=== PATIENT | female | born 1940 | race Caucasian/White ===

== ENCOUNTER 2017-07-15 12:39 | Emergency (ER) | END 2017-07-15 17:00 | disposition home or self-care (01) ==

== ENCOUNTER 2017-08-17 18:55 | Inpatient (IN) | END 2017-08-23 22:15 | disposition home or self-care (01) | DRG 392 ==

== ENCOUNTER 2018-04-21 11:11 | Inpatient (IN) | payer MEDICARE, OTHER ==
[~2018-04-21] VITALS: Ht 157.5 cm; Wt 47.0 kg
[~2018-04-21 11:11] MED LIST: ACET325T40 PO; AMIT100T2 PO; BENA40TA56 PO; CIPR500T4 PO; DIAZ5TAB4 PO; DILT180C94 PO; FLUT16SP17 NASAL; HYDR-4012 PO; LEVO125T7 PO; MELO7.5T38 PO; METR500T PO; OMEP40CA6 PO; PARO-37 PO; POLY17PO6 PO; PROP10TA6 PO
[2018-04-21] MEDS ORDERED: SOD CHLORIDE 0.9% 1,000 ML IV STA (11:15)
[2018-04-21] MEDS ORDERED: ONDANSETRON 4 MG INJ IV STA (11:15)
[2018-04-21] MEDS ORDERED: morphine 4 MG/ML VIAL IV STA (11:15)
[2018-04-21] MEDS ORDERED: RALO60TA13 ORAL (12:13)
[2018-04-21] MEDS ORDERED: OMEP20CA16 (12:13)
[2018-04-21] MEDS ORDERED: LINA145C ORAL (12:13)
[2018-04-21] MEDS ORDERED: ACETAMINOPHEN 325 MG TAB PO PRN (13:00)
[2018-04-21] MEDS ORDERED: ONDANSETRON 4 MG INJ IV PRN (13:00)
[2018-04-21] MEDS ORDERED: SODIUM POLYSTYRENE 15 GM KIT (POWDER + SORBITOL) PO ONE (13:30)
--- NOTE | 2018-04-21 13:46 | ERD ---
ER Documentation Chief Complaint Chief Complaint Abdominal pain with n/v HPI Patient is a 77-year-old female with hypertension, depression, and previous bowel obstruction who presents with abdominal pain. She was brought in by sylvain mike. She says "I feel sick". She has had diffuse abdominal pain and no bowel movement for the past 1 week. She has vomiting. She came from home. Her abdomen is distended. She has had no treatment for pain as of yet. Upon review of old medical records this is the patient's fourth visit to the ER since 2005. Her primary doctor is Dr. Bautista. ROS All systems reviewed and are negative except as per history of present illness. Medications Home Meds Active Scripts Metronidazole* (Flagyl*) 500 Mg Tablet, 500 MG PO Q8 for 10 Days, #30 TAB Prov:HERNANDEZ MO [employer]ENDER 08/23/17 Ciprofloxacin Hcl* (Ciprofloxacin Hcl*) 500 Mg Tablet, 500 MG PO BID for 10 Days, #20 TAB Prov:HERNANDEZ MO NP 08/23/17 Acetaminophen (MAPAP) 325 Mg Tablet, 650 MG PO Q6H PRN for PAIN LEVEL 1-3 OR FEVER for 1 Day, #1 TAB otc Prov:RUBA MENJIVAR MD 08/21/17 Reported Medications Omeprazole* (Omeprazole*) 20 Mg Capsule.dr, 1 CAP DAILY 04/21/18 Raloxifene HCl (Raloxifene HCl) 60 Mg Tablet, 1 TAB ORAL DAILY 04/21/18 Linaclotide (LINZESS) 145 Mcg Capsule, 1 CAP ORAL DAILY 04/21/18 Fluticasone Propionate* (Fluticasone Propionate* Nasal) 50 Mcg/[place] - 16 Gm [place].susp, 1 SPRAY NASAL BID, #1 BOTTLE TO EACH NOSTRIL 08/17/17 Levothyroxine Sodium* (Levothyroxine Sodium*) 125 Mcg Tablet, 125 MCG PO BEFORE BREAKFAST, #30 TAB 08/17/17 Amitriptyline Hcl* (Amitriptyline Hcl*) 100 Mg Tablet, 100 MG PO QHS, #30 TAB 08/17/17 Paroxetine Hcl* (Paroxetine*) 20 Mg Tablet, 20 MG PO HS, TAB 08/17/17 Propranolol Hcl* (Propranolol Hcl*) 10 Mg Tablet, 10 MG PO DAILY, TAB 08/17/17 Diazepam* (Diazepam*) 5 Mg Tablet, 5 MG PO TID, TAB 08/17/17 Benazepril Hcl* (Benazepril Hcl*) 40 Mg Tablet, 40 MG PO DAILY, #30 TAB 08/17/17 Polyethylene Glycol* (Miralax*) 17 Gm Powd.pack, 17 GM PO DAILY, #30 PACKET 08/17/17 Meloxicam* (Meloxicam*) 7.5 Mg Tablet, 15 MG PO DAILY, #30 TAB 08/17/17 Diltiazem Hcl* (Diltiazem XT) 180 Mg Capsule.er, 180 MG PO DAILY, #30 CAP 08/17/17 Discontinued Reported Medications Hydrocodone/Acetaminophen ([place] 7.5-325 Tablet) 1 Each Tablet, 1 EACH PO NEEDED, TAB 08/17/17 Discontinued Scripts Omeprazole* (Omeprazole*) 40 Mg Capsule.dr, 40 MG PO DAILY, #30 CAP 3 Refills Prov:HERNANDEZ MO [employer]ER 08/23/17 Allergies Allergies: Coded Allergies: Penicillins (Unverified Allergy, Unknown, 04/21/18) PMhx/Soc Medical and Surgical Hx: pt denies Surgical Hx History of Surgery: No Anesthesia Reaction: No Hx Neurological Disorder: Yes Hx Respiratory Disorders: No Hx Cardiac Disorders: Yes (high blood pressure) Hx Psychiatric Problems: No Hx Miscellaneous Medical Probl: Yes (see PT note) Hx Alcohol Use: No Hx Substance Use: No Hx Tobacco Use: No Smoking Status: Never smoker FmHx Family History: No diabetes Physical Exam Vitals Vital Signs Date Temp Pulse Resp B/P (MAP) Pulse Ox O2 O2 Flow FiO2 Time Delivery Rate 04/21/18 73 20 87/64 (72) 95 Room Air 12:19 04/21/18 97.8 80 18 90/68 (75) 90 11:26 Physical Exam Const: Moderate distress Head: Atraumatic Eyes: Normal Conjunctiva ENT: Normal External Ears, Nose and Mouth. Neck: Full range of motion. No meningismus. Resp: Clear to auscultation bilaterally Cardio: Regular rate and rhythm, no murmurs Abd: Distended abdomen, diffuse tenderness to palpation with tympany Skin: Pale and diaphoretic Back: No midline or flank tenderness Ext: No cyanosis, or edema Neur: Awake and alert Psych: Normal Mood and Affect Result Diagram: 04/21/18 1223 04/21/18 1223 Results 24 hrs Laboratory Tests Test 04/21/18 12:23 White Blood Count 20.5 10^3/ul Red Blood Count 5.30 10^6/ul Hemoglobin 15.8 g/dl Hematocrit 49.2 % Mean Corpuscular Volume 92.8 fl Mean Corpuscular Hemoglobin 29.8 pg Mean Corpuscular Hemoglobin Concent 32.1 g/dl Red Cell Distribution Width 13.9 % Platelet Count 275 10^3/UL Mean Platelet Volume 10.2 fl Immature Granulocytes % 0.800 % Neutrophils % 87.1 % Lymphocytes % 5.2 % Monocytes % 6.0 % Eosinophils % 0.5 % Basophils % 0.4 % Nucleated Red Blood Cells % 0.0 /100WBC Immature Granulocytes # 0.160 10^3/ul Neutrophils # 17.8 10^3/ul Lymphocytes # 1.1 10^3/ul Monocytes # 1.2 10^3/ul Eosinophils # 0.1 10^3/ul Basophils # 0.1 10^3/ul Nucleated Red Blood Cells # 0.0 10^3/ul Prothrombin Time 13.0 Sec Prothrombin Time Ratio 1.0 INR International Normalized Ratio 0.97 Activated Partial Thromboplast Time 27.7 Sec Sodium Level 136 mmol/L Potassium Level 5.4 mmol/L Chloride Level 99 mmol/L Carbon Dioxide Level 28 mmol/L Anion Gap 9 Blood Urea Nitrogen 29 mg/dl Creatinine 0.59 mg/dl Est Glomerular Filtrat Rate mL/min mL/min Glucose Level 148 mg/dl Calcium Level 9.2 mg/dl Total Bilirubin mg/dl Direct Bilirubin mg/dl Indirect Bilirubin mg/dl Aspartate Amino Transf (AST/SGOT) 32 IU/L Alanine Aminotransferase (ALT/SGPT) 23 IU/L Alkaline Phosphatase 329 IU/L Troponin I < 0.012 ng/ml Total Protein 7.1 g/dl Albumin 4.1 g/dl Globulin 3.00 g/dl Albumin/Globulin Ratio 1.36 Lipase 197 U/L Current Medications Medications Dose Sig/Herb Start Time Status Last (Trade) Ordered Route PRN Stop Time Admin Dose Reason Admin Sodium 1,000 ml @ Q1H STAT 04/21/18 DC 04/21/18 Chloride 1,000 mls/hr IV 11:15 12:08 04/21/18 12:14 Morphine 4 mg ONCE STAT 2/22/19 DC Sulfate IV 11:15 (morphine) 04/21/18 11:16 Ondansetron 4 mg ONCE STAT 04/21/18 DC 04/21/18 HCl (Zofran IV 11:15 12:12 Inj) 04/21/18 11:16 Ondansetron 4 mg BRIDGE ORDER 04/21/18 HCl (Zofran PRN IV 13:00 Inj) NAUSEA/VOMITI 04/22/18 12:59 NG 650 mg ER BRIDGE 04/21/18 Acetaminophen PRN PO 13:00 (Tylenol .MILD PAIN 04/22/18 12:59 Tab) 1-3 OR TEMP Sodium 1,000 ml @ [id number] IV 04/21/18 Chloride 75 mls/hr 13:30 04/22/18 02:49 Sodium 15 gm ONCE ONCE 04/21/18 DC Polystyrene PO 13:30 Sulfonate 04/21/18 13:31 (Kayexelate 15 Gm Kit (Powder+Sorbi ernestina)) 200 ml @ Q12 IVPB 04/21/18 Ciprofloxacin 200 mls/hr 13:30 / Dextrose 100 ml @ Q8 IVPB 04/21/18 Metronidazole 100 mls/hr 14:00 Procedures/MDM CT abdomen pelvis read by radiology shows no bowel obstruction but severe constipation per radiology. X-ray read by radiology. EKG read by me: Rate/Rhythm: Regular rate and rhythm at a normal rate Intervals: Normal Impression: No evidence of ischemia or arrhythmia Patient is a 77-year-old female who presents with abdominal distention and pain. She was found to have severe constipation with dilated bowel. I spoke with Dr. Carolina who will see the patient in consultation and recommended GoLYTELY over 48 hours. He also recommended GI consultation by the admitting team. Dr. Ro will admit the patient to a medical surgical bed. At this point I doubt appendicitis, cholecystitis, or pancreatitis. White blood cell count was elevated but I doubt bacterial infection or sepsis. Departure Diagnosis: Primary Impression: Constipation Constipation type: unspecified constipation type Qualified Codes: K59.00 - Constipation, unspecified Additional Impressions: Abdominal distension Abdominal pain Abdominal location: generalized Qualified Codes: R10.84 - Generalized abdominal pain Condition: KATHERIN Miranda MD Apr 21, 2018 13:46
[2018-04-21] MEDS ORDERED: ONDANSETRON (ODT) 4 MG TAB ODT STA (13:58)
[2018-04-21] MEDS: metroNIDAZOLE 500 MG/NS (PMX) 100 ML IVPB SCH ×2 (14:00→21:58)
[2018-04-21] MEDS: SOD CHLORIDE 0.9% 1,000 ML IV SCH ×2 (14:15→17:53)
[2018-04-21] MEDS: CIPROFLOXACIN 400MG/D5W 200 ML IVPB SCH ×2 (14:15→22:59)
[2018-04-21] MEDS ORDERED: MINERAL OIL 133 ML ENEMA PR ONE ×3 (16:00→20:00)
--- NOTE | 2018-04-21 16:05 | CONS ---
Assessment/Plan Assessment/Plan Assessment/Plan (Daily) Assessment: Severe constipation on imaging -no stool for 8 days History of chronic constipation -on Dulcolax as needed History of EGD/colonoscopy July 2017 -poor prep Leukocytosis Atherosclerosis Plan: Start Reglan 10 mg q. 8 for nausea Start Amitiza Start lactulose every 6 Mineral oil enema x3 Check KUB in the morning Continue antibiotics Patient seen in collaboration with Dr. Sauceda Consultation Date/Type/Reason Admit Date/Time Date of Consultation: Apr 21, 2018 Type of Consult GI Reason for Consultation Severe constipation on imaging Date/Time of Note DATE: 04/21/18 TIME: 15:55 Hx of Present Illness This is a 77-year-old female with a history of chronic constipation who is presenting for abdominal pain, nausea and vomiting. Patient reports no bowel movement for the past 8 days. The patient had abdominal pain for 5 days. This morning she developed nausea and vomiting. Imaging shows stool throughout the colon. Patient normally manages her constipation with Dulcolax. Last EGD/colonoscopy was done in July 2018. Patient had poor prep. Currently patient is complaining of diffuse abdominal pain with most of the symptoms in the lower abdomen. Patient denies hematemesis, hematochezia, diarrhea, fever or chills. The plan is to start lactulose and Amitiza as well as 3 mineral oil enemas to manage constipation. Order Reglan for nausea and vomiting. No endoscopic procedures indicated at this time. Patient is currently on clear l iquid diet. Gastrointestinal: no complaints (See HPI) Past Medical History Chronic constipation Home Meds Active Scripts Metronidazole* (Flagyl*) 500 Mg Tablet, 500 MG PO Q8 for 10 Days, #30 TAB Prov:HERNANDEZ MO NP 08/23/17 Ciprofloxacin Hcl* (Ciprofloxacin Hcl*) 500 Mg Tablet, 500 MG PO BID for 10 Days, #20 TAB Prov:HERNANDEZ MO NP 08/23/17 Acetaminophen (MAPAP) 325 Mg Tablet, 650 MG PO Q6H PRN for PAIN LEVEL 1-3 OR FEVER for 1 Day, #1 TAB otc Prov:RUBA MENJIVAR MD 08/21/17 Reported Medications Omeprazole* (Omeprazole*) 20 Mg Capsule., 1 CAP DAILY 04/21/18 Raloxifene HCl (Raloxifene HCl) 60 Mg Tablet, 1 TAB ORAL DAILY 04/21/18 Linaclotide (LINZESS) 145 Mcg Capsule, 1 CAP ORAL DAILY 04/21/18 Fluticasone Propionate* (Fluticasone Propionate* Nasal) 50 Mcg/[place] - 16 Gm [place].susp, 1 SPRAY NASAL BID, #1 BOTTLE TO EACH NOSTRIL 08/17/17 Levothyroxine Sodium* (Levothyroxine Sodium*) 125 Mcg Tablet, 125 MCG PO BEFORE BREAKFAST, #30 TAB 08/17/17 Amitriptyline Hcl* (Amitriptyline Hcl*) 100 Mg Tablet, 100 MG PO QHS, #30 TAB 08/17/17 Paroxetine Hcl* (Paroxetine*) 20 Mg Tablet, 20 MG PO HS, TAB 08/17/17 Propranolol Hcl* (Propranolol Hcl*) 10 Mg Tablet, 10 MG PO DAILY, TAB 08/17/17 Diazepam* (Diazepam*) 5 Mg Tablet, 5 MG PO TID, TAB 08/17/17 Benazepril Hcl* (Benazepril Hcl*) 40 Mg Tablet, 40 MG PO DAILY, #30 TAB 08/17/17 Polyethylene Glycol* (Miralax*) 17 Gm Powd.pack, 17 GM PO DAILY, #30 PACKET 08/17/17 Meloxicam* (Meloxicam*) 7.5 Mg Tablet, 15 MG PO DAILY, #30 TAB 08/17/17 Diltiazem Hcl* (Diltiazem XT) 180 Mg Capsule.er, 180 MG PO DAILY, #30 CAP 08/17/17 Discontinued Reported Medications Hydrocodone/Acetaminophen ([place] 7.5-325 Tablet) 1 Each Tablet, 1 EACH PO NEEDED, TAB 08/17/17 Discontinued Scripts Omeprazole* (Omeprazole*) 40 Mg Capsule.dr, 40 MG PO DAILY, #30 CAP 3 Refills Prov:HERNANDEZ MO KENNEL HAND 08/23/17 Medications Current Medications Ondansetron HCl (Zofran Inj) 4 mg BRIDGE ORDER PRN IV NAUSEA/VOMITING; Start 04/21/18 at 13:00; Stop 04/22/18 at 12:59 Acetaminophen (Tylenol Tab) 650 mg ER BRIDGE PRN PO .MILD PAIN 1-3 OR TEMP; Start 04/21/18 at 13:00; Stop 04/22/18 at 12:59 Sodium Chloride 1,000 ml @ 75 mls/hr [id number] IV Last administered on 04/21/18at 14:15; Admin Dose 75 MLS/HR; Start 04/21/18 at 13:30; Stop 04/22/18 at 02:49 Ciprofloxacin/ Dextrose 200 ml @ 200 mls/hr Q12 IVPB Last administered on 04/21/18at 14:15; Admin Dose 200 MLS/HR; Start 04/21/18 at 13:30 Metronidazole 100 ml @ 100 mls/hr Q8 IVPB ; Start 04/21/18 at 14:00 Metoclopramide HCl (Reglan) 10 mg Q8 IV ; Start 04/21/18 at 16:00; Status UNV Lactulose (Enulose) 10 gm Q6 PO ; Start 04/21/18 at 18:00; Status UNV Lubiprostone (Amitiza) 24 mcg BID PO ; Start 04/21/18 at 21:00; Status UNV Mineral Oil (Fleet Mineral Oil Enema) 133 ml ONCE ONCE NV ; Start 04/21/18 at 16:00; Stop 04/21/18 at 16:01; Status UNV Mineral Oil (Fleet Mineral Oil Enema) 133 ml ONCE ONCE NV ; Start 04/21/18 at 18:00; Stop 04/21/18 at 18:01; Status UNV Mineral Oil (Fleet Mineral Oil Enema) 133 ml ONCE ONCE NV ; Start 04/21/18 at 20:00; Stop 04/21/18 at 20:01; Status UNV Allergies: Coded Allergies: Penicillins (Unverified Allergy, Unknown, 04/21/18) Past Surgical History Past Surgical Hx: other Social History Alcohol Use: none Smoking Status: Never smoker Drug Use: none Exam/Review of Systems Exam Vitals Vital Signs Date Temp Pulse Resp B/P (MAP) Pulse Ox O2 O2 Flow FiO2 Time Delivery Rate 04/21/18 97.0 74 20 112/75 93 Room Air 14:53 (87) Exam PHYSICAL EXAMINATION: GENERAL: Well developed, well nourished, alert & oriented x 3, in no acute distress SKIN: No lesions, no stigmata chronic liver disease, no evidence of bleeding diathesis LYMPHATIC: No palpable lymphadenopathy. HEAD: Normocephalic, atraumatic, no tenderness. EYES: Pupils equal reactive to light and accommodation, full extraocular movements, sclera clear, non-icteric, no discharge. EARS/NOSE AND THROAT: Ears normal, nose normal, oropharynx normal, oral membranes well hydrated without lesions. NECK: Supple, no masses, thyroid normal, JVP within normal limits, carotids normal without bruits. CHEST: Inspection within normal limits. CARDIOVASCULAR: Heart: Regular rate and rhythm, no murmurs, gallops or rubs. Peripheral pulses present within normal limits, no cyanosis, clubbing or edemas. No pulsatile abdominal mass RESPIRATORY: Lungs clear to auscultation and percussion, no wheezing, no rubs GASTROINTESTINAL AND LIVER: Abdomen: Soft, non tenderness, moderately distended, no hernias, no masses, no organomegaly, no ascites, no guarding, no rebound tenderness, normoactive bowel sounds. Rectal: Deferred. GENITOURINARY: Female genitalia within normal limits. EXTREMITIES: No cyanosis, clubbing or edema. Results Result Diagram: 04/21/18 1223 04/21/18 1223 Results 24hrs Laboratory Tests Test 04/21/18 12:23 White Blood Count 20.5 #H Red Blood Count 5.30 # Hemoglobin 15.8 # Hematocrit 49.2 #H Mean Corpuscular Volume 92.8 Mean Corpuscular Hemoglobin 29.8 Mean Corpuscular Hemoglobin Concent 32.1 Red Cell Distribution Width 13.9 Platelet Count 275 Mean Platelet Volume 10.2 Immature Granulocytes % 0.800 H Neutrophils % 87.1 H Lymphocytes % 5.2 L Monocytes % 6.0 Eosinophils % 0.5 Basophils % 0.4 Nucleated Red Blood Cells % 0.0 Immature Granulocytes # 0.160 H Neutrophils # 17.8 H Lymphocytes # 1.1 Monocytes # 1.2 H Eosinophils # 0.1 Basophils # 0.1 Nucleated Red Blood Cells # 0.0 Prothrombin Time 13.0 Prothrombin Time Ratio 1.0 INR International Normalized Ratio 0.97 Activated Partial Thromboplast Time 27.7 Sodium Level 136 Potassium Level 5.4 H Chloride Level 99 Carbon Dioxide Level 28 Anion Gap 9 Blood Urea Nitrogen 29 H Creatinine 0.59 Est Glomerular Filtrat Rate mL/min Glucose Level 148 Calcium Level 9.2 Total Bilirubin Direct Bilirubin Indirect Bilirubin Aspartate Amino Transf (AST/SGOT) 32 Alanine Aminotransferase (ALT/SGPT) 23 Alkaline Phosphatase 329 H Troponin I < 0.012 Total Protein 7.1 Albumin 4.1 Globulin 3.00 Albumin/Globulin Ratio 1.36 Lipase 197 Medications Medication Current Medications Ondansetron HCl (Zofran Inj) 4 mg BRIDGE ORDER PRN IV NAUSEA/VOMITING; Start 04/21/18 at 13:00; Stop 04/22/18 at 12:59 Acetaminophen (Tylenol Tab) 650 mg ER BRIDGE PRN PO .MILD PAIN 1-3 OR TEMP; Start 04/21/18 at 13:00; Stop 04/22/18 at 12:59 Sodium Chloride 1,000 ml @ 75 mls/hr [id number] IV Last administered on 04/21/18at 14:15; Admin Dose 75 MLS/HR; Start 04/21/18 at 13:30; Stop 04/22/18 at 02:49 Ciprofloxacin/ Dextrose 200 ml @ 200 mls/hr Q12 IVPB Last administered on 04/21/18at 14:15; Admin Dose 200 MLS/HR; Start 04/21/18 at 13:30 Metronidazole 100 ml @ 100 mls/hr Q8 IVPB ; Start 04/21/18 at 14:00 Metoclopramide HCl (Reglan) 10 mg Q8 IV ; Start 04/21/18 at 16:00; Status UNV Lactulose (Enulose) 10 gm Q6 PO ; Start 04/21/18 at 18:00; Status UNV Lubiprostone (Amitiza) 24 mcg BID PO ; Start 04/21/18 at 21:00; Status UNV Mineral Oil (Fleet Mineral Oil Enema) 133 ml ONCE ONCE NV ; Start 04/21/18 at 16:00; Stop 04/21/18 at 16:01; Status UNV Mineral Oil (Fleet Mineral Oil Enema) 133 ml ONCE ONCE NV ; Start 04/21/18 at 18:00; Stop 04/21/18 at 18:01; Status UNV Mineral Oil (Fleet Mineral Oil Enema) 133 ml ONCE ONCE NV ; Start 04/21/18 at 20:00; Stop 04/21/18 at 20:01; Status UNV ALBA CROW NP Apr 21, 2018 16:05
[2018-04-21 16:16] VITALS: BP 101/61; RESP 18
--- NOTE | 2018-04-21 16:28 | CONS ---
Assessment/Plan Assessment/Plan Assessment/Plan (Daily) Severe fecal impaction She has chronic history Command GoLYTELY over 2 days with defer to GI GI consultation recommended May need manual disimpaction Nonsurgical abdomen. Consultation Date/Type/Reason Admit Date/Time Date/Time of Note DATE: 04/21/18 TIME: 16:22 Hx of Present Illness Natalie patient is a 77-year-old female with hypertension, depression, and long- standing history of constipation. Patient presents to the ER today for abdominal pain. She has not had a bowel movement for approximately 8 days. She normally has a bowel movement every 3-4 days. She has had some emesis as well. She denies prior admissions for constipation but has had a long-standing history of constipation Past Medical History Medical History: GERD, hypertension, other (Raynauds syndrome) Home Meds Active Scripts Metronidazole* (Flagyl*) 500 Mg Tablet, 500 MG PO Q8 for 10 Days, #30 TAB Prov:HERNANDEZ MO NP 08/23/17 Ciprofloxacin Hcl* (Ciprofloxacin Hcl*) 500 Mg Tablet, 500 MG PO BID for 10 Days, #20 TAB Prov:HERNANDEZ MO NP 08/23/17 Acetaminophen (MAPAP) 325 Mg Tablet, 650 MG PO Q6H PRN for PAIN LEVEL 1-3 OR FEVER for 1 Day, #1 TAB otc Prov:RUBA MENJIVAR MD 08/21/17 Reported Medications Omeprazole* (Omeprazole*) 20 Mg Capsule.dr, 1 CAP DAILY 04/21/18 Raloxifene HCl (Raloxifene HCl) 60 Mg Tablet, 1 TAB ORAL DAILY 04/21/18 Linaclotide (LINZESS) 145 Mcg Capsule, 1 CAP ORAL DAILY 04/21/18 Fluticasone Propionate* (Fluticasone Propionate* Nasal) 50 Mcg/Fentress - 16 Gm Fentress.susp, 1 SPRAY NASAL BID, #1 BOTTLE TO EACH NOSTRIL 08/17/17 Levothyroxine Sodium* (Levothyroxine Sodium*) 125 Mcg Tablet, 125 MCG PO BEFORE BREAKFAST, #30 TAB 08/17/17 Amitriptyline Hcl* (Amitriptyline Hcl*) 100 Mg Tablet, 100 MG PO QHS, #30 TAB 08/17/17 Paroxetine Hcl* (Paroxetine*) 20 Mg Tablet, 20 MG PO HS, TAB 08/17/17 Propranolol Hcl* (Propranolol Hcl*) 10 Mg Tablet, 10 MG PO DAILY, TAB 08/17/17 Diazepam* (Diazepam*) 5 Mg Tablet, 5 MG PO TID, TAB 08/17/17 Benazepril Hcl* (Benazepril Hcl*) 40 Mg Tablet, 40 MG PO DAILY, #30 TAB 08/17/17 Polyethylene Glycol* (Miralax*) 17 Gm Powd.pack, 17 GM PO DAILY, #30 PACKET 08/17/17 Meloxicam* (Meloxicam*) 7.5 Mg Tablet, 15 MG PO DAILY, #30 TAB 08/17/17 Diltiazem Hcl* (Diltiazem XT) 180 Mg Capsule.er, 180 MG PO DAILY, #30 CAP 08/17/17 Discontinued Reported Medications Hydrocodone/Acetaminophen (Cotter 7.5-325 Tablet) 1 Each Tablet, 1 EACH PO NEEDED, TAB 08/17/17 Discontinued Scripts Omeprazole* (Omeprazole*) 40 Mg Capsule.dr, 40 MG PO DAILY, #30 CAP 3 Refills Prov:HERNANDEZ MO EVP 08/23/17 Medications Current Medications Sodium Chloride 1,000 ml @ 75 mls/hr [id number] IV Last administered on 04/21/18at 14:15; Admin Dose 75 MLS/HR; Start 04/21/18 at 13:30; Stop 04/22/18 at 02:49 Ciprofloxacin/ Dextrose 200 ml @ 200 mls/hr Q12 IVPB Last administered on 04/21/18at 14:15; Admin Dose 200 MLS/HR; Start 04/21/18 at 13:30 Metronidazole 100 ml @ 100 mls/hr Q8 IVPB ; Start 04/21/18 at 14:00 Metoclopramide HCl (Reglan) 10 mg Q8 IV ; Start 04/21/18 at 16:00 Lactulose (Enulose) 10 gm Q6 PO ; Start 04/21/18 at 18:00 Lubiprostone (Amitiza) 24 mcg BID PO ; Start 04/21/18 at 21:00 Mineral Oil (Fleet Mineral Oil Enema) 133 ml ONCE ONCE VT ; Start 04/21/18 at 18:00; Stop 04/21/18 at 18:01 Mineral Oil (Fleet Mineral Oil Enema) 133 ml ONCE ONCE VT ; Start 04/21/18 at 20:00; Stop 04/21/18 at 20:01 Allergies: Coded Allergies: Penicillins (Unverified Allergy, Unknown, 04/21/18) Past Surgical History Past Surgical Hx: no surgical history, other Social History Alcohol Use: none Smoking Status: Never smoker Drug Use: none Exam/Review of Systems Exam Vitals Vital Signs Date Temp Pulse Resp B/P (MAP) Pulse Ox O2 O2 Flow FiO2 Time Delivery Rate 04/21/18 98.0 18 101/61 93 Room Air 16:16 (74) 04/21/18 74 14:53 Constitutional: alert, oriented, well developed, frail Psych: no complaints, nl mood/affect Head: normocephalic, atraumatic Neck: supple, non-tender Respiratory: clear to auscultation, normal air movement Cardiovascular: regular rate and rhythm Gastrointestinal: soft, other (Moderately distended, minimal tenderness) Extremities: normal pulses Neurological: [employer]OR [employer] BUS II-XII intact, nl mental status, nl speech Skin: nl turgor, rash or lesions Lymph: nl lymph nodes Results Result Diagram: 04/21/18 1223 04/21/18 1223 Results 24hrs Laboratory Tests Test 04/21/18 12:23 White Blood Count 20.5 #H Red Blood Count 5.30 # Hemoglobin 15.8 # Hematocrit 49.2 #H Mean Corpuscular Volume 92.8 Mean Corpuscular Hemoglobin 29.8 Mean Corpuscular Hemoglobin Concent 32.1 Red Cell Distribution Width 13.9 Platelet Count 275 Mean Platelet Volume 10.2 Immature Granulocytes % 0.800 H Neutrophils % 87.1 H Lymphocytes % 5.2 L Monocytes % 6.0 Eosinophils % 0.5 Basophils % 0.4 Nucleated Red Blood Cells % 0.0 Immature Granulocytes # 0.160 H Neutrophils # 17.8 H Lymphocytes # 1.1 Monocytes # 1.2 H Eosinophils # 0.1 Basophils # 0.1 Nucleated Red Blood Cells # 0.0 Prothrombin Time 13.0 Prothrombin Time Ratio 1.0 INR International Normalized Ratio 0.97 Activated Partial Thromboplast Time 27.7 Sodium Level 136 Potassium Level 5.4 H Chloride Level 99 Carbon Dioxide Level 28 Anion Gap 9 Blood Urea Nitrogen 29 H Creatinine 0.59 Est Glomerular Filtrat Rate mL/min Glucose Level 148 Calcium Level 9.2 Total Bilirubin Direct Bilirubin Indirect Bilirubin Aspartate Amino Transf (AST/SGOT) 32 Alanine Aminotransferase (ALT/SGPT) 23 Alkaline Phosphatase 329 H Troponin I < 0.012 Total Protein 7.1 Albumin 4.1 Globulin 3.00 Albumin/Globulin Ratio 1.36 Lipase 197 Imaging Imaging Patient: OLIVERIO SINGLETON : 1940 Age: 77 Sex: F MR #: [id number] DOS: 04/21/18 1115 Ordering MD: KATHERIN LOPEZ MD Location: E/R Room/Bed: PROCEDURE: CT ABDOMEN AND PELVIS WITHOUT CONTRAST. CLINICAL INDICATION: Abdominal pain TECHNIQUE: CT scan of the abdomen and pelvis without contrast was performed on a multidetector high-resolution CT scanner. The patient was scanned without intravenous contrast. Coronal and sagittal reformatted images were obtained from the axial source images. Images were reviewed on a high-resolution PACS workstation. The total exam CTDI equals 5.2 mGy and the total exam DLP equals 278.9 mGy-cm. One or more of the following dose reduction techniques were used: Automated exposure control. Adjustment of the mA and/or kV according to patient size. Use of iterative reconstruction technique. DICOM images are available COMPARISON: CT 08/17/2017 FINDINGS: CT abdomen: Bilateral ground-glass opacities and atelectasis. Heart size is enlarged. No significant pericardial effusion. Hepatic morphology is within normal limits. No gross contour deforming masses. The gallbladder is distended. No evidence of gallstones.. No evidence of intrahepatic or extrahepatic biliary dilatation. The spleen and pancreas are within normal limits. Both adrenal glands are within normal limits. Both kidneys are in anatomic position. No gross renal/ureteric calculi. No obstructive uropathy. The visualized GI tract demonstrates a small hiatal hernia. No evidence of bowel obstruction. Large amount of stool is noted throughout mildly distended loops of large bowel, suggestive of constipation. The appendix is within normal limits. Atherosclerotic disease of the aorta. Several shoddy retroperitoneal lymph nodes are noted. CT pelvis: The bladder is within normal limits. The uterus is unremarkable. Stool noted within the rectosigmoid colon. No significant free fluid. No significant pelvic lymphadenopathy. The visualized osseous structures demonstrates multilevel degenerative disease of the spine. Grade 1 anterolisthesis of L5-S1. There is chronic compression deformity of the superior endplate of T12. IMPRESSION: 1. Distended gallbladder. No evidence of gallstones. Correlate with clinical symptoms. 2. Small hiatal hernia. No evidence of bowel obstruction. LARGE AMOUNT OF STOOL IS NOTED THROUGHOUT MILDLY DISTENDED LOOPS OF LARGE BOWEL SUGGESTIVE OF SEVERE CONSTIPATION. 3. The appendix is within normal limits. 4. Atherosclerotic disease of the aorta. 5. No evidence of free fluid or free air. No gross focal fluid collections. 6. Multilevel degenerative disease of lumbosacral spine. Chronic compression deformity of the superior endplate of T12. Grade 1 anterolisthesis of L5-S1. RPTAT: AAPP Physician Henrry Date Time Electronically viewed and signed by Jesi Tellez Physician on 04/21/2018 12:39 JL/ CC: KATHERIN LOPEZ MD Medications Medication Current Medications Sodium Chloride 1,000 ml @ 75 mls/hr [id number] IV Last administered on 04/21/18at 14:15; Admin Dose 75 MLS/HR; Start 04/21/18 at 13:30; Stop 04/22/18 at 02:49 Ciprofloxacin/ Dextrose 200 ml @ 200 mls/hr Q12 IVPB Last administered on 04/21/18at 14:15; Admin Dose 200 MLS/HR; Start 04/21/18 at 13:30 Metronidazole 100 ml @ 100 mls/hr Q8 IVPB ; Start 04/21/18 at 14:00 Metoclopramide HCl (Reglan) 10 mg Q8 IV ; Start 04/21/18 at 16:00 Lactulose (Enulose) 10 gm Q6 PO ; Start 04/21/18 at 18:00 Lubiprostone (Amitiza) 24 mcg BID PO ; Start 04/21/18 at 21:00 Mineral Oil (Fleet Mineral Oil Enema) 133 ml ONCE ONCE VT ; Start 04/21/18 at 18:00; Stop 04/21/18 at 18:01 Mineral Oil (Fleet Mineral Oil Enema) 133 ml ONCE ONCE VT ; Start 04/21/18 at 20:00; Stop 04/21/18 at 20:01 NIKI ALFONSO MD Apr 21, 2018 16:28
[2018-04-21 16:37] VITALS: BMI 40.3
--- NOTE | 2018-04-21 16:51 | QN ---
Documentation Comment H and P dictated Addendum 1. Patient also seems to have chronic anxiety on propranolol and diazepam tid -unclear if patient is actually taking this, will try to confirm and switch to lower dose Xanax while she's here only if it's confirmed that she does indeed take diazepam daily at home 2. POssible Colitis and UTI -start empiric Cipro / flagyl , f/u urine cultures 3. Hyperkalemia -hold ACei, give Kayexalate 4. Megaloblastosis : -check folate and B12 levels. Dispo: -further interventions per clinical course and oracle identity management consultant recommendations CARITO CHAU Apr 21, 2018 16:51
[2018-04-21] MEDS: LACTULOSE 30ML CUP PO SCH (18:00)
[2018-04-21] MEDS: METOCLOPRAMIDE 10 MG INJ IV SCH ×2 (18:12→21:50)
--- NOTE | 2018-04-21 19:32 | HP ---
DATE OF ADMISSION: 04/21/2018 PRESENTING COMPLAINTS: Abdominal pain, nausea and vomiting as well as constipation. HISTORY OF PRESENTING COMPLAINTS: This is a patient that has a history of chronic constipation who p resented today with abdominal pain, nausea and vomiting. The patient has been constipated for the la st 2 weeks and developed nausea and vomiting this morning. Imaging in the emergency room showed ailyn re constipation. Unfortunately, because she has failed outpatient therapy, she is being admitted for management as well as a surgical as well as gastroenterology review. PAST MEDICAL HISTORY: Positive for: 1. Chronic constipation. 2. High blood pressure. 3. Chronic arthritis. 4. The patient is hard of hearing in both ears. PAST SURGICAL HISTORY: No known surgical history. ALLERGIES: NO KNOWN DRUG ALLERGIES. SOCIAL HISTORY: She denies tobacco, alcohol or illicit drug use. FAMILY HISTORY: Noncontributory in this 77-year-old female. REVIEW OF SYSTEMS: No fever, no cough, no shortness of breath, no hematemesis, no hematuria or dysur ia. All other systems were reviewed and negative. PHYSICAL EXAMINATION: VITAL SIGNS: Temperature 98.0, pulse 74, respirations 18, blood pressure 101/61, saturations 93% on room air. GENERAL: Elderly female, alert, oriented, anxious. HEENT: Head normocephalic. Pupils equal and reactive. Mucous membranes are moist. No scleral icte nivia. Mild conjunctival pallor. NECK: Supple without adenopathy. CHEST: Clear to auscultation. CARDIOVASCULAR: Heart sounds S1, S2. No added sounds or murmurs. ABDOMEN: At this time is soft. It is nonsurgical, mildly distended, minimally tender diffusely. EXTREMITIES: Negative for edema. SKIN: Devoid of rash or jaundice. LABORATORY VALUES: I reviewed her CBC. She does have a leukocytosis of 20,000, of which the source is not quite clear. She has some megaloblastosis and a neutrophil predominance. On her chemistry, p otassium is borderline elevated at 5.4, otherwise unremarkable. Coag profile is unremarkable. Urina lysis is still pending. IMAGING: CT of the abdomen and pelvis shows distended gallbladder without gallstones, small hiatal h ernia, large amount of stool noted throughout mildly distended loops of large bowel suggestive of sev ere constipation, degenerative disease of lumbosacral spine and chronic compression at the level of T 12. Chest x-ray showed cardiomegaly, mild bibasilar opacities, atherosclerosis and degenerative taylor ges of bilateral glenohumeral joints. EKG was reviewed and showed normal sinus rhythm at a normal ra te. HOME MEDICATIONS: Also reviewed and reconciled. ASSESSMENT: A 77-year-old female who presents to the emergency room with severe abdominal pain, naus ea and vomiting managed as follows: 1. Abdominal pain, nausea and vomiting secondary to #2. 2. Severe constipation with a history of chronic constipation. 3. Hypertension with good control. 4. Chronic hypothyroidism. 5. Chronic depression. 6. Hyperkalemia likely secondary to EVELYNE inhibitor use. 7. Chronic degenerative arthritis and history as above of osteoporosis. 8. Leukocytosis, likely reactive. 9. Chronic megaloblastosis. 10. Hard of hearing. DISPOSITION: The patient will be admitted to med/surg floor, surgical consultation has already been obtained, and the patient will be seen by Surgery. Surgery also recommends GI consult which we will obtain. We will start her on a clear liquid diet for now, and after she has had a good bowel movemen t and if it is tolerated, we will advance. We will also provide supportive care and treat her hyperk alemia with 1 dose of Kayexalate which will hopefully also help her constipation. We will also hold the EVELYNE inhibitor for now. Further interventions will depend on her clinical course. We will also a wait databases software consultant's recommendations. Plan of care has been discussed with her in detail and her family . Questions have been answered. Dictated By: CARITO CHAU MD BA/NTS Conf#: [id number] DID#: [id number] CC: DAINA CLEMENT MD;*EndCC*
[2018-04-21 20:00] VITALS: BP 129/77; PULSE 102
[2018-04-21] MEDS: ALPRAZOLAM 0.25 MG TAB PO SCH (21:49)
[2018-04-21] MEDS: FLUTICASONE 0.05% 16 GM NAS SPRAY NASAL SCH (21:49)
[2018-04-21] MEDS: PAROXETINE 20 MG TAB PO SCH (21:50)
[2018-04-21] MEDS: AMITRIPTYLINE 50 MG TAB PO SCH (21:50)
[2018-04-21] MEDS: LUBIPROSTONE 24 MCG CAP PO SCH (22:59)
[2018-04-22] MEDS: LACTULOSE 30ML CUP PO SCH ×4 (00:39→17:50)
[2018-04-22 02:00] VITALS: BP 96/55; PULSE 93; RESP 17
[2018-04-22] MEDS: metroNIDAZOLE 500 MG/NS (PMX) 100 ML IVPB SCH ×3 (05:52→22:26)
[2018-04-22] MEDS: METOCLOPRAMIDE 10 MG INJ IV SCH ×3 (05:52→21:52)
[2018-04-22] MEDS: PANTOPRAZOLE (EC) 40 MG TAB PO SCH (05:55)
[2018-04-22 08:00] VITALS: BP 98/55; PULSE 99; RESP 18
--- NOTE | 2018-04-22 10:02 | PN ---
Date/Time of Note Date/Time of Note DATE: 04/22/18 TIME: 09:56 Assessment/Plan VTE Prophylaxis Risk score (from Ns)>0 risk: 4 SCD applied (from Ns): No SCD contraindicated: low risk/ambulating Pharmacological prophylaxis: heparin Lines/Catheters IV C[facility]ter Type [facility]from [facility] Saline Lock Urinary Cath still in place: No Assessment/Plan Assessment/Plan Assessment: Severe constipation on imaging -no stool for 8 days History of chronic constipation -on Dulcolax as needed History of EGD/colonoscopy July 2017 -poor prep Leukocytosis Atherosclerosis Plan: Advance diet to regular after KUB Continue Reglan 10 mg q. 8 for nausea Continue Amitiza and lactulose Check KUB in the morning Continue antibiotics Patient seen in collaboration with Dr. Sauceda Subjective: Patient is doing well. She had 3 large bowel movements overnight. Her abdomen is soft and nontender. Denies nausea or vomiting. White blood count is trending down. After KUB we will advance the diet to regular. Patient needs to continue on Amitiza as an outpatient to prevent further constipation. If KUB is negative and patient tolerates the diet may be discharged home today. PHYSICAL EXAMINATION: GENERAL: Well developed, well nourished, alert & oriented x 3, in no acute distress SKIN: No lesions, no stigmata chronic liver disease, no evidence of bleeding diathesis LYMPHATIC: No palpable lymphadenopathy. HEAD: Normocephalic, atraumatic, no tenderness. EYES: Pupils equal reactive to light and accommodation, full extraocular movements, sclera clear, non-icteric, no discharge. EARS/NOSE AND THROAT: Ears normal, nose normal, oropharynx normal, oral membranes well hydrated without lesions. NECK: Supple, no masses, thyroid normal, JVP within normal limits, carotids normal without bruits. CHEST: Inspection within normal limits. CARDIOVASCULAR: Heart: Regular rate and rhythm, no murmurs, gallops or rubs. Peripheral pulses present within normal limits, no cyanosis, clubbing or edemas. No pulsatile abdominal mass RESPIRATORY: Lungs clear to auscultation and percussion, no wheezing, no rubs GASTROINTESTINAL AND LIVER: Abdomen: Soft, non tenderness, slightly distended, no hernias, no masses, no organomegaly, no ascites, no guarding, no rebound tenderness, normoactive bowel sounds. Rectal: Deferred. GENITOURINARY: Female genitalia within normal limits. EXTREMITIES: No cyanosis, clubbing or edema. Result Diagram: 04/22/18 0452 04/22/18 0452 Results 24hrs Laboratory Tests Test 04/21/18 12:23 04/22/18 04:52 White Blood Count 20.5 #H 17.8 H Red Blood Count 5.30 # 4.34 Hemoglobin 15.8 # 13.0 Hematocrit 49.2 #H 40.7 Mean Corpuscular Volume 92.8 93.8 Mean Corpuscular Hemoglobin 29.8 30.0 Mean Corpuscular Hemoglobin Concent 32.1 31.9 L Red Cell Distribution Width 13.9 14.1 Platelet Count 275 199 # Mean Platelet Volume 10.2 11.0 H Immature Granulocytes % 0.800 H 0.700 H Neutrophils % 87.1 H 80.9 H Lymphocytes % 5.2 L 4.6 L Monocytes % 6.0 13.5 H Eosinophils % 0.5 0.0 Basophils % 0.4 0.3 Nucleated Red Blood Cells % 0.0 0.0 Immature Granulocytes # 0.160 H 0.120 H Neutrophils # 17.8 H 14.4 H Lymphocytes # 1.1 0.8 Monocytes # 1.2 H 2.4 H Eosinophils # 0.1 0.0 Basophils # 0.1 0.1 Nucleated Red Blood Cells # 0.0 0.0 Prothrombin Time 13.0 Prothrombin Time Ratio 1.0 INR International Normalized Ratio 0.97 Activated Partial Thromboplast Time 27.7 Sodium Level 136 135 Potassium Level 5.4 H 4.1 Chloride Level 99 100 Carbon Dioxide Level 28 24 Anion Gap 9 11 Blood Urea Nitrogen 29 H 42 #H Creatinine 0.59 1.09 H Est Glomerular Filtrat Rate mL/min Glucose Level 148 83 # Calcium Level 9.2 7.6 L Total Bilirubin Direct Bilirubin Indirect Bilirubin Aspartate Amino Transf (AST/SGOT) 32 Alanine Aminotransferase (ALT/SGPT) 23 Alkaline Phosphatase 329 H Troponin I < 0.012 Total Protein 7.1 Albumin 4.1 Globulin 3.00 Albumin/Globulin Ratio 1.36 Lipase 197 Magnesium Level 2.9 H Vitamin B12 Level 447 Folate 19.1 Thyroid Stimulating Hormone (TSH) 0.854 CC: REGINA SAUCEDA MD ; Exam/Review of Systems Exam Vitals Vital Signs Date Temp Pulse Resp B/P (MAP) Pulse Ox O2 O2 Flow FiO2 Time Delivery Rate 04/22/18 98.0 99 18 98/55 (59) 91 Room Air 08:00 Intake and Output 04/21/18 04/21/18 04/22/18 1515:00 23:00 07:00 IntakeIntake Total 220 ml 1000 ml OutputOutput Total 1 ml BalanceBalance 219 ml 1000 ml Results Results 24hrs Laboratory Tests Test 04/21/18 12:23 04/22/18 04:52 White Blood Count 20.5 #H 17.8 H Red Blood Count 5.30 # 4.34 Hemoglobin 15.8 # 13.0 Hematocrit 49.2 #H 40.7 Mean Corpuscular Volume 92.8 93.8 Mean Corpuscular Hemoglobin 29.8 30.0 Mean Corpuscular Hemoglobin Concent 32.1 31.9 L Red Cell Distribution Width 13.9 14.1 Platelet Count 275 199 # Mean Platelet Volume 10.2 11.0 H Immature Granulocytes % 0.800 H 0.700 H Neutrophils % 87.1 H 80.9 H Lymphocytes % 5.2 L 4.6 L Monocytes % 6.0 13.5 H Eosinophils % 0.5 0.0 Basophils % 0.4 0.3 Nucleated Red Blood Cells % 0.0 0.0 Immature Granulocytes # 0.160 H 0.120 H Neutrophils # 17.8 H 14.4 H Lymphocytes # 1.1 0.8 Monocytes # 1.2 H 2.4 H Eosinophils # 0.1 0.0 Basophils # 0.1 0.1 Nucleated Red Blood Cells # 0.0 0.0 Prothrombin Time 13.0 Prothrombin Time Ratio 1.0 INR International Normalized Ratio 0.97 Activated Partial Thromboplast Time 27.7 Sodium Level 136 135 Potassium Level 5.4 H 4.1 Chloride Level 99 100 Carbon Dioxide Level 28 24 Anion Gap 9 11 Blood Urea Nitrogen 29 H 42 #H Creatinine 0.59 1.09 H Est Glomerular Filtrat Rate mL/min Glucose Level 148 83 # Calcium Level 9.2 7.6 L Total Bilirubin Direct Bilirubin Indirect Bilirubin Aspartate Amino Transf (AST/SGOT) 32 Alanine Aminotransferase (ALT/SGPT) 23 Alkaline Phosphatase 329 H Troponin I < 0.012 Total Protein 7.1 Albumin 4.1 Globulin 3.00 Albumin/Globulin Ratio 1.36 Lipase 197 Magnesium Level 2.9 H Vitamin B12 Level 447 Folate 19.1 Thyroid Stimulating Hormone (TSH) 0.854 Medications Medication Current Medications Ciprofloxacin/ Dextrose 200 ml @ 200 mls/hr Q12 IVPB Last administered on 04/21/18 22:59; Admin Dose 200 MLS/HR; Start 04/21/18 at 13:30 Metronidazole 100 ml @ 100 mls/hr Q8 IVPB Last administered on 04/22/18 05:52; Admin Dose 100 MLS/HR; Start 04/21/18 at 14:00 Metoclopramide HCl (Reglan) 10 mg Q8 IV Last administered on 04/22/18 05:52; Admin Dose 10 MG; Start 04/21/18 at 16:00 Lactulose (Enulose) 10 gm Q6 PO Last administered on 04/22/18at 00:39; Admin Dose 10 GM; Start 04/21/18 at 18:00 Lubiprostone (Amitiza) 24 mcg BID PO Last administered on 04/21/18 22:59; Admin Dose 24 MCG; Start 04/21/18 at 21:00 Acetaminophen (Tylenol Tab) 650 mg Q6H PRN PO PAIN LEVEL 1-3 OR FEVER; Start 04/21/18 at 17:00 Amitriptyline HCl (Elavil) 100 mg QHS PO Last administered on 04/21/18 21:50; Admin Dose 100 MG; Start 04/21/18 at 21:00 Diltiazem HCl (Cardizem Cd) 180 mg DAILY PO ; Start 04/22/18 at 09:00 Fluticasone Propionate (Flonase 0.05% Nasal) 1 spray BID NASAL Last administered on 04/21/18at 21:49; Admin Dose 1 SPRAY; Start 04/21/18 at 21:00 Levothyroxine Sodium (Synthroid) 125 mcg BEFORE BREAKFAST PO ; Start 04/22/18 at 07:00 Paroxetine HCl (Paxil) 20 mg HS PO Last administered on 04/21/18 21:50; Admin Dose 20 MG; Start 04/21/18 at 21:00 Pantoprazole (Protonix Tab) 40 mg DAILY@06 PO ; Start 04/22/18 at 06:00 Alprazolam (Xanax) 0.25 mg BID PO Last administered on 04/21/18at 21:49; Admin Dose 0.25 MG; Start 04/21/18 at 21:00 ALBA CROW NP Apr 22, 2018 10:02
[2018-04-22] MEDS: CIPROFLOXACIN 400MG/D5W 200 ML IVPB SCH ×2 (10:35→21:09)
[2018-04-22] MEDS: FLUTICASONE 0.05% 16 GM NAS SPRAY NASAL SCH ×2 (10:35→21:26)
[2018-04-22] MEDS: LUBIPROSTONE 24 MCG CAP PO SCH ×2 (11:38→21:51)
[2018-04-22] MEDS: LEVOTHYROXINE 125 MCG TAB PO SCH (11:38)
[2018-04-22] MEDS: ALPRAZOLAM 0.25 MG TAB PO SCH ×2 (11:38→21:26)
[2018-04-22] MEDS: DILTIAZEM (CD) 180 MG CAP PO SCH (11:40)
--- NOTE | 2018-04-22 13:01 | PN ---
Date/Time of Note Date/Time of Note DATE: 04/22/18 TIME: 12:59 Assessment/Plan Lines/Catheters IV Catheter Type (from Nrs): Saline Lock Wilkins in Place (from Nrs): No Assessment/Plan Assessment/Plan Hospital day #1 for severe constipation/impaction Abdomen much improved. Continue current care. Reconsult as needed Subjective 24 Hr Interval Summary Constitutional: no complaints, improved Additional Comments Multiple bowel movements overnight Exam/Review of Systems Vital Signs Vitals Vital Signs Date Temp Pulse Resp B/P (MAP) Pulse Ox O2 O2 Flow FiO2 Time Delivery Rate 04/22/18 98.0 99 18 98/55 (69) 91 Room Air 08:00 Intake and Output 04/21/18 04/21/18 04/22/18 1515:00 23:00 07:00 IntakeIntake Total 220 ml 1000 ml OutputOutput Total 1 ml BalanceBalance 219 ml 1000 ml Exam Respiratory: clear to auscultation, normal air movement Cardiovascular: regular rate and rhythm Gastrointestinal: soft, non-tender, other (Distention much improved) Results Result Diagram: 04/22/18 0452 04/22/18 0452 NIKI ALFONSO MD Apr 22, 2018 13:00
[2018-04-22 14:00] VITALS: BP 80/45; PULSE 97; RESP 22
[2018-04-22] MEDS ORDERED: SOD CHLORIDE 0.9% 500 ML IV ONE (14:30)
[2018-04-22 14:59] VITALS: BP 99/58; RESP 20
[2018-04-22] MEDS: ACETAMINOPHEN 325 MG TAB PO PRN (15:04)
[2018-04-22] MEDS ORDERED: ALBUTEROL/IPRATROPIUM (NEB) 3 ML AMP HHN PRN (16:30)
[2018-04-22 16:42] VITALS: BP 108/60; RESP 18
[2018-04-22 16:44] VITALS: Ht 157.5 cm; Wt 47.0 kg
--- NOTE | 2018-04-22 16:46 | PN ---
Date/Time of Note Date/Time of Note DATE: 04/22/18 TIME: 16:40 Assessment/Plan VTE Prophylaxis Risk score (from Ns)>0 risk: 4 SCD applied (from Ns): No SCD contraindicated: other Pharmacological prophylaxis: LMWH Lines/Catheters IV Catheter Type (from [facility] Saline Lock Urinary Cath still in place: No Assessment/Plan Hospital Course SUBJECTIVE: Denies any chest pain. Complains of some dyspnea. Was hypotensive earlier that responded well to IV fluids. OBJECTIVE: Physical Exam General: Thin, frail looking, 77-year-old male lying in bed in mild respiratory distress. HEENT: Normocephalic, atraumatic. Eyes: Anicteric sclerae, conjunctivae clear. ENT: Nasal septum midline, oral mucosa moist. Neck supple. Respiratory: Bilaterally diminished breath sounds. Minimal use of accessory muscles of respiration. No adventitious breath sounds. Cardiovascular: S1, S2 heard. Regular rate and rhythm. Abdomen: Distended. Nontender. Genitourinary: Deferred. Extremities: No cyanosis, clubbing of fingers, no edema. Peripheral pulses palpable. Neurologic: The patient is awake, alert, and oriented. Hard of hearing. Skin: Normal skin turgor. No skin rashes. Labs & Vitals per chart ASSESSMENT & PLAN 77-year-old female with a past medical history of hypertension, hypothyroidism, prediabetes (hemoglobin A1c 6.0), COPD, depression. and Palacios's esophagus. The patient came to the emergency room with chief complaint of abdominal pain, nausea, vomiting as well as constipation. The patient underwent a CT scan of t he abdomen and pelvis that showed large amount of stool throughout mildly distended loops of large bowel suggestive of severe constipation. The patient was admitted to inpatient setting for further treatment and evaluation. 1. Chronic constipation with fecal impaction. -Continue bowel regimen. -Being followed by gastroenterology and surgery. -Continue Amitiza. -Continue antibiotics. 2. Hypertension. -Continue antihypertensives. 3. Hypothyroidism -Continue Synthroid. 4. Prediabetes -Hemoglobin A1c of 6.0. -Monitor glycemic trends. 5. COPD. -Start inhaled bronchodilators both SAB & LABA. 6. Possible underlying urinary tract infection. -Continue antimicrobials. 7. Depression. -Continue SSRIs. 8. Fluids, electrolytes, and nutrition. -Regular diet. 9. DVT prophylaxis. -Subcutaneous Lovenox. 10. Plan. -Continue bowel regimen. -Initiate the patient on inhaled bronchodilators since the patient has known history of COPD. -Await clinical improvement. The patient was seen in collaboration with Dr. Mullen. Result Diagram: 04/22/1845104/22/182 Results 24hrs Laboratory Tests Test 04/22/18 04:40 04/22/18 04:52 04/22/18 14:27 Urine Color RED Urine Clarity CLEAR Urine pH 5.0 Urine Specific Media 1.025 Urine Ketones TRACE A Urine Nitrite NEGATIVE Urine Bilirubin NEGATIVE Urine Urobilinogen 2+ H Urine Leukocyte Esterase TRACE A Urine Microscopic RBC 2 Urine Microscopic WBC 20 H Urine Hemoglobin 1+ H Urine Glucose NEGATIVE Urine Total Protein 1+ H White Blood Count 17.8 H Red Blood Count 4.34 Hemoglobin 13.0 Hematocrit 40.7 Mean Corpuscular Volume 93.8 Mean Corpuscular Hemoglobin 30.0 Mean Corpuscular Hemoglobin Concent 31.9 L Red Cell Distribution Width 14.1 Platelet Count 199 # Mean Platelet Volume 11.0 H Immature Granulocytes % 0.700 H Neutrophils % 80.9 H Lymphocytes % 4.6 L Monocytes % 13.5 H Eosinophils % 0.0 Basophils % 0.3 Nucleated Red Blood Cells % 0.0 Immature Granulocytes # 0.120 H Neutrophils # 14.4 H Lymphocytes # 0.8 Monocytes # 2.4 H Eosinophils # 0.0 Basophils # 0.1 Nucleated Red Blood Cells # 0.0 Sodium Level 135 Potassium Level 4.1 Chloride Level 100 Carbon Dioxide Level 24 Anion Gap 11 Blood Urea Nitrogen 42 #H Creatinine 1.09 H Est Glomerular Filtrat Rate mL/min Glucose Level 83 # Calcium Level 7.6 L Magnesium Level 2.9 H Vitamin B12 Level 447 Folate 19.1 Thyroid Stimulating Hormone (TSH) 0.854 Troponin I < 0.012 Exam/Review of Systems Exam Vitals Vital Signs Date Temp Pulse Resp B/P (MAP) Pulse Ox O2 O2 Flow FiO2 Time Delivery Rate 04/22/18 99.3 15:04 04/22/18 20 99/58 (72) 96 Nasal 14:59 Cannula 04/22/18 97 14:00 Intake and Output 04/21/18 04/21/18 04/22/18 1515:00 23:00 07:00 IntakeIntake Total 220 ml 1000 ml OutputOutput Total 1 ml BalanceBalance 219 ml 1000 ml Results Results 24hrs Laboratory Tests Test 04/22/18 04:40 04/22/18 04:52 04/22/18 14:27 Urine Color RED Urine Clarity CLEAR Urine pH 5.0 Urine Specific Media 1.025 Urine Ketones TRACE A Urine Nitrite NEGATIVE Urine Bilirubin NEGATIVE Urine Urobilinogen 2+ H Urine Leukocyte Esterase TRACE A Urine Microscopic RBC 2 Urine Microscopic WBC 20 H Urine Hemoglobin 1+ H Urine Glucose NEGATIVE Urine Total Protein 1+ H White Blood Count 17.8 H Red Blood Count 4.34 Hemoglobin 13.0 Hematocrit 40.7 Mean Corpuscular Volume 93.8 Mean Corpuscular Hemoglobin 30.0 Mean Corpuscular Hemoglobin Concent 31.9 L Red Cell Distribution Width 14.1 Platelet Count 199 # Mean Platelet Volume 11.0 H Immature Granulocytes % 0.700 H Neutrophils % 80.9 H Lymphocytes % 4.6 L Monocytes % 13.5 H Eosinophils % 0.0 Basophils % 0.3 Nucleated Red Blood Cells % 0.0 Immature Granulocytes # 0.120 H Neutrophils # 14.4 H Lymphocytes # 0.8 Monocytes # 2.4 H Eosinophils # 0.0 Basophils # 0.1 Nucleated Red Blood Cells # 0.0 Sodium Level 135 Potassium Level 4.1 Chloride Level 100 Carbon Dioxide Level 24 Anion Gap 11 Blood Urea Nitrogen 42 #H Creatinine 1.09 H Est Glomerular Filtrat Rate mL/min Glucose Level 83 # Calcium Level 7.6 L Magnesium Level 2.9 H Vitamin B12 Level 447 Folate 19.1 Thyroid Stimulating Hormone (TSH) 0.854 Troponin I < 0.012 Medications Medication Current Medications Ciprofloxacin/ Dextrose 200 ml @ 200 mls/hr Q12 IVPB Last administered on 04/22/18at 10:35; Admin Dose 200 MLS/HR; Start 04/21/18 at 13:30 Metronidazole 100 ml @ 100 mls/hr Q8 IVPB Last administered on 04/22/18at 14:56; Admin Dose 100 MLS/HR; Start 04/21/18 at 14:00 Metoclopramide HCl (Reglan) 10 mg Q8 IV Last administered on 04/22/18at 14:56; Admin Dose 10 MG; Start 04/21/18 at 16:00 Lactulose (Enulose) 10 gm Q6 PO Last administered on 04/22/18at 11:42; Admin Dose 10 GM; Start 04/21/18 at 18:00 Lubiprostone (Amitiza) 24 mcg BID PO Last administered on 04/22/18 11:38; Admin Dose 24 MCG; Start 04/21/18 at 21:00 Acetaminophen (Tylenol Tab) 650 mg Q6H PRN PO PAIN LEVEL 1-3 OR FEVER Last administered on 04/22/18 15:04; Admin Dose 650 MG; Start 04/21/18 at 17:00 Amitriptyline HCl (Elavil) 100 mg QHS PO Last administered on 04/21/18 21:50; Admin Dose 100 MG; Start 04/21/18 at 21:00 Diltiazem HCl (Cardizem Cd) 180 mg DAILY PO Last administered on 04/22/18 11:40; Admin Dose 180 MG; Start 04/22/18 at 09:00 Fluticasone Propionate (Flonase 0.05% Nasal) 1 spray BID NASAL Last admi nistered on 04/22/18 10:35; Admin Dose 1 SPRAY; Start 04/21/18 at 21:00 Levothyroxine Sodium (Synthroid) 125 mcg BEFORE BREAKFAST PO Last administered on 04/22/18 11:38; Admin Dose 125 MCG; Start 04/22/18 at 07:00 Paroxetine HCl (Paxil) 20 mg HS PO Last administered on 04/21/18 21:50; Admin Dose 20 MG; Start 04/21/18 at 21:00 Pantoprazole (Protonix Tab) 40 mg DAILY@06 PO ; Start 04/22/18 at 06:00 Alprazolam (Xanax) 0.25 mg BID PO Last administered on 04/22/18 11:38; Admin Dose 0.25 MG; Start 04/21/18 at 21:00 Albuterol/ Ipratropium (Duoneb) 3 ml Q6HWA RESP THERAPY HHN ; Start 04/22/18 at 20:00 Albuterol/ Ipratropium (Duoneb) 3 ml Q2H RESP THERAPY PRN HHN SHORTNESS OF BREATH; Start 04/22/18 at 16:30 Arformoterol Tartrate (Brovana (Neb)) 2 ml Q12H RESP THERAPY NEB ; Start 04/22/18 at 20:00 HERNANDEZ MO NP Apr 22, 2018 16:46
[2018-04-22 20:00] VITALS: BP 125/66; PULSE 91; RESP 17
[2018-04-22] MEDS: ALBUTEROL/IPRATROPIUM (NEB) 3 ML AMP HHN SCH (20:05)
[2018-04-22] MEDS: ARFORMOTEROL TARTRATE 15MCG/2 ML AMP NEB SCH (20:05)
[2018-04-22] MEDS: PAROXETINE 20 MG TAB PO SCH (21:26)
[2018-04-22] MEDS: AMITRIPTYLINE 50 MG TAB PO SCH (21:51)
[2018-04-23] MEDS: LACTULOSE 30ML CUP PO SCH ×5 (00:02→23:55)
[2018-04-23 02:00] VITALS: BP 118/59; PULSE 98; RESP 18
[2018-04-23] MEDS: metroNIDAZOLE 500 MG/NS (PMX) 100 ML IVPB SCH ×3 (06:04→23:51)
[2018-04-23] MEDS: METOCLOPRAMIDE 10 MG INJ IV SCH ×3 (06:04→22:52)
[2018-04-23] MEDS: LEVOTHYROXINE 125 MCG TAB PO SCH (06:05)
[2018-04-23] MEDS: PANTOPRAZOLE (EC) 40 MG TAB PO SCH (06:05)
--- NOTE | 2018-04-23 07:07 | PN ---
Date/Time of Note Date/Time of Note DATE: 04/23/18 TIME: 07:05 Assessment/Plan VTE Prophylaxis Risk score (from Ns)>0 risk: 4 [place] [facility] contraindicated: other Pharmacological prophylaxis: LMWH Lines/Catheters [facility] C[facility] Type (from [facility] Saline Lock Urinary Cath still in place: No Assessment/Plan Hospital Course SUBJECTIVE: Denies any abdominal pain. OBJECTIVE: Physical Exam General: Thin, frail looking, 77-year-old male lying in bed in mild respiratory distress. HEENT: Normocephalic, atraumatic. Eyes: Anicteric sclerae, conjunctivae clear. ENT: Nasal septum midline, oral mucosa moist. Neck supple. Respiratory: Bilaterally diminished breath sounds. Minimal use of accessory muscles of respiration. No adventitious breath sounds. Cardiovascular: S1, S2 heard. Regular rate and rhythm. Abdomen: Distended. Nontender. Genitourinary: Deferred. Extremities: No cyanosis, clubbing of fingers, no edema. Peripheral pulses palpable. Neurologic: The patient is awake, alert, and oriented. Hard of hearing. Skin: Normal skin turgor. No skin rashes. Labs & Vitals per chart ASSESSMENT & PLAN 77-year-old female with a past medical history of hypertension, hypothyroidism, prediabetes (hemoglobin A1c 6.0), COPD, depression. and Palacios's esophagus. The patient came to the emergency room with chief complaint of abdominal pain, nausea, vomiting as well as constipation. The patient underwent a CT scan of the abdomen and pelvis that showed large amount of stool throughout mildly distended loops of large bowel suggestive of severe constipation. The patient was admitted to inpatient setting for further treatment and evaluation. 1. Chronic constipation with fecal impaction. -Continue bowel regimen. -Being followed by gastroenterology and surgery. -Continue Amitiza. -Continue antibiotics. 2. Hypertension. -Continue antihypertensives. 3. Hypothyroidism -Continue Synthroid. 4. Prediabetes -Hemoglobin A1c of 6.0. -Monitor glycemic trends. 5. COPD. -Continue inhaled bronchodilators both JAIME & LABA. 6. Possible underlying urinary tract infection. -Continue antimicrobials. -Pending cultures. 7. Depression. -Continue SSRIs. 8. Mild protein-calorie malnutrition. -Obtain dietary consult. 9. Fluids, electrolytes, and nutrition. -Regular diet. 10. DVT prophylaxis. -Subcutaneous Lovenox. 11. Plan. -Continue bowel regimen. -Replete potassium. -Await clinical improvement. The patient was seen in collaboration with Dr. Mullen. Result Diagram: 04/23/18 0503 04/23/18 0502 Results 24hrs Laboratory Tests Test 04/22/18 14:11 04/22/18 14:27 04/23/18 05:02 04/23/18 05:03 Blood Gas Blood arterial Specimen Source Arterial Blood 04/22/2018 4:35:3 Date Drawn 8 PM Arterial Blood pH 7.309 L (Temp corrected) Arterial Blood 39.4 pCO2 (Temp correct) Arterial Blood 56.5 L pO2 (Temp corrected) Arterial Blood 19.3 L HCO3 Arterial Blood -6.4 L Base Excess Arterial Blood 87.9 L Oxygen Saturation Gautam Test ACCEPTAB Arterial Blood Right Radial Gas Puncture Site Arterial 0.1 Blood Carboxyhemo globin Arterial Blood 0.4 Methemoglobin Blood Gas A-a O2 46.1 H Differential Oxyhemoglobin 87.5 L Percent Blood Gas 37.0 Temperature Blood Gas ROOM AIR Modality FiO2 21.0 Blood Gas NZAKERI Notified Whom Blood Gas 04/22/2018 4:50:2 Notified Time 6 PM Troponin I < 0.012 Sodium Level 136 Potassium Level 3.4 L Chloride Level 102 Carbon Dioxide 28 Level Anion Gap 6 Blood Urea 20 # Nitrogen Creatinine 0.77 Est Glomerular Filtrat Rate mL/min Glucose Level 108 Calcium Level 7.7 L Phosphorus Level 3.0 Magnesium Level 2.6 H White Blood Count 10.0 # Red Blood Count 3.88 L Hemoglobin 11.5 L Hematocrit 36.6 L Mean Corpuscular 94.3 Volume Mean Corpuscular 29.6 Hemoglobin Mean Corpuscular 31.4 L Hemoglobin Concen t Red Cell 14.6 H Distribution Width Platelet Count 167 Mean Platelet 10.4 Volume Immature 0.500 H Granulocytes % Neutrophils % 77.1 H Lymphocytes % 9.7 L Monocytes % 11.7 H Eosinophils % 0.8 Basophils % 0.2 Nucleated Red 0.0 Blood Cells % Immature 0.050 H Granulocytes # Neutrophils # 7.8 H Lymphocytes # 1.0 Monocytes # 1.2 H Eosinophils # 0.1 Basophils # 0.0 Nucleated Red 0.0 Blood Cells # Exam/Review of Systems Exam Vitals Vital Signs Date Temp Pulse Resp B/P (MAP) Pulse Ox O2 O2 Flow FiO2 Time Delivery Rate 04/23/18 2.0 04:40 04/23/18 98.5 98 18 118/59 94 02:00 (78) 04/22/18 Nasal 22:15 Cannula Intake and Output 04/22/18 04/22/18 04/23/18 1414:59 22:59 06:59 IntakeIntake Total 200 ml 500 ml 100 ml BalanceBalance 200 ml 500 ml 100 ml Results Results 24hrs Laboratory Tests Test 04/22/18 14:11 04/22/18 14:27 04/23/18 05:02 04/23/18 05:03 Blood Gas Blood arterial Specimen Source Arterial Blood 04/22/2018 4:35:3 Date Drawn 8 PM Arterial Blood pH 7.309 L (Temp corrected) Arterial Blood 39.4 pCO2 (Temp correct) Arterial Blood 56.5 L pO2 (Temp corrected) Arterial Blood 19.3 L HCO3 Arterial Blood -6.4 L Base Excess Arterial Blood 87.9 L Oxygen Saturation Gautam Test ACCEPTAB Arterial Blood Right Radial Gas Puncture Site Arterial 0.1 Blood Carboxyhemo globin Arterial Blood 0.4 Methemoglobin Blood Gas A-a O2 46.1 H Differential Oxyhemoglobin 87.5 L Percent Blood Gas 37.0 Temperature Blood Gas ROOM AIR Modality FiO2 21.0 Blood Gas NZAKERI Notified Whom Blood Gas 04/22/2018 4:50:2 Notified Time 6 PM Troponin I < 0.012 Sodium Level 136 Potassium Level 3.4 L Chloride Level 102 Carbon Dioxide 28 Level Anion Gap 6 Blood Urea 20 # Nitrogen Creatinine 0.77 Est Glomerular Filtrat Rate mL/min Glucose Level 108 Calcium Level 7.7 L Phosphorus Level 3.0 Magnesium Level 2.6 H White Blood Count 10.0 # Red Blood Count 3.88 L Hemoglobin 11.5 L Hematocrit 36.6 L Mean Corpuscular 94.3 Volume Mean Corpuscular 29.6 Hemoglobin Mean Corpuscular 31.4 L Hemoglobin Concen t Red Cell 14.6 H Distribution Width Platelet Count 167 Mean Platelet 10.4 Volume Immature 0.500 H Granulocytes % Neutrophils % 77.1 H Lymphocytes % 9.7 L Monocytes % 11.7 H Eosinophils % 0.8 Basophils % 0.2 Nucleated Red 0.0 Blood Cells % Immature 0.050 H Granulocytes # Neutrophils # 7.8 H Lymphocytes # 1.0 Monocytes # 1.2 H Eosinophils # 0.1 Basophils # 0.0 Nucleated Red 0.0 Blood Cells # Medications Medication Current Medications Ciprofloxacin/ Dextrose 200 ml @ 200 mls/hr Q12 IVPB Last administered on 04/22/18 21:09; Admin Dose 200 MLS/HR; Start 04/21/18 at 13:30 Metronidazole 100 ml @ 100 mls/hr Q8 IVPB Last administered on 04/23/18 06:04; Admin Dose 100 MLS/HR; Start 04/21/18 at 14:00 Metoclopramide HCl (Reglan) 10 mg Q8 IV Last administered on 04/23/18 06:04; Admin Dose 10 MG; Start 04/21/18 at 16:00 Lactulose (Enulose) 10 gm Q6 PO Last administered on 04/23/18 06:05; Admin Dose 10 GM; Start 04/21/18 at 18:00 Lubiprostone (Amitiza) 24 mcg BID PO Last administered on 04/22/18 21:51; Ad min Dose 24 MCG; Start 04/21/18 at 21:00 Acetaminophen (Tylenol Tab) 650 mg Q6H PRN PO PAIN LEVEL 1-3 OR FEVER Last administered on 04/22/18 15:04; Admin Dose 650 MG; Start 04/21/18 at 17:00 Amitriptyline HCl (Elavil) 100 mg QHS PO Last administered on 04/22/18 21:51; Admin Dose 100 MG; Start 04/21/18 at 21:00 Diltiazem HCl (Cardizem Cd) 180 mg DAILY PO Last administered on 04/22/18 11:40; Admin Dose 180 MG; Start 04/22/18 at 09:00 Fluticasone Propionate (Flonase 0.05% Nasal) 1 spray BID NASAL Last administered on 04/22/18 21:26; Admin Dose 1 SPRAY; Start 04/21/18 at 21:00 Levothyroxine Sodium (Synthroid) 125 mcg BEFORE BREAKFAST PO Last administered on 04/23/18 06:05; Admin Dose 125 MCG; Start 04/22/18 at 07:00 Paroxetine HCl (Paxil) 20 mg HS PO Last administered on 04/22/18 21:26; Admin Dose 20 MG; Start 04/21/18 at 21:00 Pantoprazole (Protonix Tab) 40 mg DAILY@06 PO Last administered on 04/23/18at 06:05; Admin Dose 40 MG; Start 04/22/18 at 06:00 Alprazolam (Xanax) 0.25 mg BID PO Last administered on 04/22/18at 21:26; Admin Dose 0.25 MG; Start 04/21/18 at 21:00 Albuterol/ Ipratropium (Duoneb) 3 ml Q6HWA RESP THERAPY HHN Last administered on 04/22/18at 20:05; Admin Dose 3 ML; Start 04/22/18 at 20:00 Albuterol/ Ipratropium (Duoneb) 3 ml Q2H RESP THERAPY PRN HHN SHORTNESS OF BREATH; Start 04/22/18 at 16:30 Arformoterol Tartrate (Brovana (Neb)) 2 ml Q12H RESP THERAPY NEB Last administered on 04/22/18at 20:05; Admin Dose 2 ML; Start 04/22/18 at 20:00 Enoxaparin Sodium (Lovenox) 40 mg DAILY SC ; Start 04/23/18 at 09:00 HERNANDEZ MO NP Apr 23, 2018 07:07
[2018-04-23] MEDS ORDERED: POTASSIUM CHLORIDE (SR) 10 MEQ TAB PO ONE (07:30)
[2018-04-23 08:16] VITALS: BP 131/63; PULSE 100; RESP 18
[2018-04-23] MEDS: ARFORMOTEROL TARTRATE 15MCG/2 ML AMP NEB SCH ×2 (08:21→20:00)
[2018-04-23] MEDS: ALBUTEROL/IPRATROPIUM (NEB) 3 ML AMP HHN SCH ×3 (08:21→20:51)
[2018-04-23] MEDS: LUBIPROSTONE 24 MCG CAP PO SCH ×2 (09:00→22:51)
[2018-04-23] MEDS: DILTIAZEM (CD) 180 MG CAP PO SCH (09:00)
[2018-04-23] MEDS: FLUTICASONE 0.05% 16 GM NAS SPRAY NASAL SCH ×2 (10:25→22:51)
[2018-04-23] MEDS: ALPRAZOLAM 0.25 MG TAB PO SCH ×2 (10:25→22:52)
[2018-04-23] MEDS: ENOXAPARIN 40 MG/0.4 ML SYG SC SCH (10:27)
[2018-04-23] MEDS: CIPROFLOXACIN 400MG/D5W 200 ML IVPB SCH ×2 (11:25→22:50)
[2018-04-23 14:56] VITALS: BP 130/66; PULSE 98; RESP 19
--- NOTE | 2018-04-23 16:35 | PN ---
Date/Time of Note Date/Time of Note DATE: 04/23/18 TIME: 16:21 Assessment/Plan VTE Prophylaxis Risk score (from Ns)>0 risk: 4 SCD applied (from Ns): Yes Pharmacological prophylaxis: heparin Lines/Catheters IV C[facility] (from [facility] Saline Lock Urinary Cath still in place: No Assessment/Plan Assessment/Plan Assessment: Severe constipation on imaging -no stool for 8 days History of chronic constipation -on Dulcolax as needed History of EGD/colonoscopy July 2017 -poor prep Leukocytosis Atherosclerosis Plan: Straight cath for urinary retention Bowel prep for constipation Continue Reglan 10 mg q. 8 for nausea Continue Amitiza and lactulose Check KUB in the morning Continue antibiotics Patient seen in collaboration with Dr. Sauceda Subjective: Patient is c/o urinary retention. Will order Colonoscopy prep to disimpact the patient and Straight cath. No stool since 2 days ago. Her abdomen is soft and nontender. Denies nausea or vomiting. White blood count is trending down. After KUB we will advance the diet to regular. Patient needs to continue on Amitiza as an outpatient to prevent further constipation. If KUB is negative and patient tolerates the diet may be discharged home today. PHYSICAL EXAMINATION: GENERAL: Well developed, well nourished, alert & oriented x 3, in no acute distress SKIN: No lesions, no stigmata chronic liver disease, no evidence of bleeding diathesis LYMPHATIC: No palpable lymphadenopathy. HEAD: Normocephalic, atraumatic, no tenderness. EYES: Pupils equal reactive to light and accommodation, full extraocular movements, sclera clear, non-icteric, no discharge. EARS/NOSE AND THROAT: Ears normal, nose normal, oropharynx normal, oral membranes well hydrated without lesions. NECK: Supple, no masses, thyroid normal, JVP within normal limits, carotids normal without bruits. CHEST: Inspection within normal limits. CARDIOVASCULAR: Heart: Regular rate and rhythm, no murmurs, gallops or rubs. Peripheral pulses present within normal limits, no cyanosis, clubbing or edemas. No pulsatile abdominal mass RESPIRATORY: Lungs clear to auscultation and percussion, no wheezing, no rubs GASTROINTESTINAL AND LIVER: Abdomen: Soft, non tenderness, slightly distended, no hernias, no masses, no organomegaly, no ascites, no guarding, no rebound tenderness, normoactive bowel sounds. Rectal: Deferred. GENITOURINARY: Female genitalia within normal limits. EXTREMITIES: No cyanosis, clubbing or edema. Result Diagram: 04/23/18 0503 04/23/18 0502 Results 24hrs Laboratory Tests Test 04/23/18 05:02 04/23/18 05:03 Sodium Level 136 Potassium Level 3.4 L Chloride Level 102 Carbon Dioxide Level 28 Anion Gap 6 Blood Urea Nitrogen 20 # Creatinine 0.77 Est Glomerular Filtrat Rate mL/min Glucose Level 108 Calcium Level 7.7 L Phosphorus Level 3.0 Magnesium Level 2.6 H B-Type Natriuretic Peptide 198 White Blood Count 10.0 # Red Blood Count 3.88 L Hemoglobin 11.5 L Hematocrit 36.6 L Mean Corpuscular Volume 94.3 Mean Corpuscular Hemoglobin 29.6 Mean Corpuscular Hemoglobin Concent 31.4 L Red Cell Distribution Width 14.6 H Platelet Count 167 Mean Platelet Volume 10.4 Immature Granulocytes % 0.500 H Neutrophils % 77.1 H Lymphocytes % 9.7 L Monocytes % 11.7 H Eosinophils % 0.8 Basophils % 0.2 Nucleated Red Blood Cells % 0.0 Immature Granulocytes # 0.050 H Neutrophils # 7.8 H Lymphocytes # 1.0 Monocytes # 1.2 H Eosinophils # 0.1 Basophils # 0.0 Nucleated Red Blood Cells # 0.0 CC: REGINA SAUCEDA MD ; Exam/Review of Systems Exam Vitals Vital Signs Date Temp Pulse Resp B/P (MAP) Pulse Ox O2 O2 Flow FiO2 Time Delivery Rate 04/23/18 79 18 96 Nasal 2.0 15:00 Cannula 04/23/18 98.8 130/66 14:56 (87) Intake and Output 04/22/18 04/22/18 04/23/18 1515:00 23:00 07:00 IntakeIntake Total 200 ml 500 ml 100 ml BalanceBalance 200 ml 500 ml 100 ml Results Results 24hrs Laboratory Tests Test 04/23/18 05:02 04/23/18 05:03 Sodium Level 136 Potassium Level 3.4 L Chloride Level 102 Carbon Dioxide Level 28 Anion Gap 6 Blood Urea Nitrogen 20 # Creatinine 0.77 Est Glomerular Filtrat Rate mL/min Glucose Level 108 Calcium Level 7.7 L Phosphorus Level 3.0 Magnesium Level 2.6 H B-Type Natriuretic Peptide 198 White Blood Count 10.0 # Red Blood Count 3.88 L Hemoglobin 11.5 L Hematocrit 36.6 L Mean Corpuscular Volume 94.3 Mean Corpuscular Hemoglobin 29.6 Mean Corpuscular Hemoglobin Concent 31.4 L Red Cell Distribution Width 14.6 H Platelet Count 167 Mean Platelet Volume 10.4 Immature Granulocytes % 0.500 H Neutrophils % 77.1 H Lymphocytes % 9.7 L Monocytes % 11.7 H Eosinophils % 0.8 Basophils % 0.2 Nucleated Red Blood Cells % 0.0 Immature Granulocytes # 0.050 H Neutrophils # 7.8 H Lymphocytes # 1.0 Monocytes # 1.2 H Eosinophils # 0.1 Basophils # 0.0 Nucleated Red Blood Cells # 0.0 Medications Medication Current Medications Ciprofloxacin/ Dextrose 200 ml @ 200 mls/hr Q12 IVPB Last administered on 04/23/18 11:25; Admin Dose 200 MLS/HR; Start 04/21/18 at 13:30 Metronidazole 100 ml @ 100 mls/hr Q8 IVPB Last administered on 04/23/18 13:49; Admin Dose 100 MLS/HR; Start 04/21/18 at 14:00 Metoclopramide HCl (Reglan) 10 mg Q8 IV Last administered on 04/23/18 13:49; Admin Dose 10 MG; Start 04/21/18 at 16:00 Lactulose (Enulose) 10 gm Q6 PO Last administered on 04/23/18 13:49; Admin Dose 10 GM; Start 04/21/18 at 18:00 Lubiprostone (Amitiza) 24 mcg BID PO Last administered on 04/22/18 21:51; Admin Dose 24 MCG; Start 04/21/18 at 21:00 Acetaminophen (Tylenol Tab) 650 mg Q6H PRN PO PAIN LEVEL 1-3 OR FEVER Last administered on 04/22/18 15:04; Admin Dose 650 MG; Start 04/21/18 at 17:00 Amitriptyline HCl (Elavil) 100 mg QHS PO Last administered on 04/22/18 21:51; Admin Dose 100 MG; Start 04/21/18 at 21:00 Diltiazem HCl (Cardizem Cd) 180 mg DAILY PO Last administered on 04/22/18 11:40; Admin Dose 180 MG; Start 04/22/18 at 09:00 Fluticasone Propionate (Flonase 0.05% Nasal) 1 spray BID NASAL Last administered on 04/23/18 10:25; Admin Dose 1 SPRAY; Start 04/21/18 at 21:00 Levothyroxine Sodium (Synthroid) 125 mcg BEFORE BREAKFAST PO Last administered on 04/23/18 06:05; Admin Dose 125 MCG; Start 04/22/18 at 07:00 Paroxetine HCl (Paxil) 20 mg HS PO Last administered on 04/22/18 21:26; Admin Dose 20 MG; Start 04/21/18 at 21:00 Pantoprazole (Protonix Tab) 40 mg DAILY@06 PO Last administered on 04/23/18 06:05; Admin Dose 40 MG; Start 04/22/18 at 06:00 Alprazolam (Xanax) 0.25 mg BID PO Last administered on 04/23/18 10:25; Admin Dose 0.25 MG; Start 04/21/18 at 21:00 Albuterol/ Ipratropium (Duoneb) 3 ml Q6HWA RESP THERAPY HHN Last administered on 04/23/18 14:49; Admin Dose 3 ML; Start 04/22/18 at 20:00 Albuterol/ Ipratropium (Duoneb) 3 ml Q2H RESP THERAPY PRN HHN SHORTNESS OF BREATH; Start 04/22/18 at 16:30 Arformoterol Tartrate (Brovana (Neb)) 2 ml Q12H RESP THERAPY NEB Last administered on 04/23/18 08:21; Admin Dose 2 ML; Start 04/22/18 at 20:00 Enoxaparin Sodium (Lovenox) 40 mg DAILY SC Last administered on 04/23/18 10:27; Admin Dose 40 MG; Start 04/23/18 at 09:00 ALBA CROW NP Apr 23, 2018 16:31
[2018-04-23] MEDS ORDERED: BISACODYL (EC) 5 MG TAB PO ONE (18:00)
[2018-04-23] MEDS ORDERED: MAGNESIUM CITRATE 300 ML BTL PO ONE (18:00)
[2018-04-23] MEDS: ACETAMINOPHEN 325 MG TAB PO PRN (19:03)
[2018-04-23 20:00] VITALS: BP 159/74; PULSE 107; RESP 18
[2018-04-23] MEDS ORDERED: POLYETHYLENE GLYCOL 3350 119 GM POWDER PO ONE (20:00)
[2018-04-23] MEDS: AMITRIPTYLINE 50 MG TAB PO SCH (22:51)
[2018-04-23] MEDS: PAROXETINE 20 MG TAB PO SCH (22:51)
[2018-04-24 02:00] VITALS: BP 153/84; PULSE 90; RESP 18
[2018-04-24] MEDS: METOCLOPRAMIDE 10 MG INJ IV SCH (05:46)
[2018-04-24] MEDS: PANTOPRAZOLE (EC) 40 MG TAB PO SCH (05:47)
[2018-04-24] MEDS: LACTULOSE 30ML CUP PO SCH ×4 (05:47→23:12)
[2018-04-24] MEDS: metroNIDAZOLE 500 MG/NS (PMX) 100 ML IVPB SCH (05:48)
[2018-04-24] MEDS: LEVOTHYROXINE 125 MCG TAB PO SCH (06:02)
[2018-04-24] MEDS ORDERED: POLYETHYLENE GLYCOL 3350 119 GM POWDER PO ONE (08:00)
[2018-04-24 08:39] VITALS: BP 184/90; PULSE 99; RESP 18
[2018-04-24] MEDS: FLUTICASONE 0.05% 16 GM NAS SPRAY NASAL SCH ×2 (08:54→20:59)
[2018-04-24] MEDS: ENOXAPARIN 40 MG/0.4 ML SYG SC SCH (08:54)
[2018-04-24] MEDS: ALPRAZOLAM 0.25 MG TAB PO SCH ×2 (08:55→20:59)
[2018-04-24] MEDS: ALBUTEROL/IPRATROPIUM (NEB) 3 ML AMP HHN SCH ×2 (08:55→14:01)
[2018-04-24] MEDS: DILTIAZEM (CD) 180 MG CAP PO SCH (08:55)
[2018-04-24] MEDS: LUBIPROSTONE 24 MCG CAP PO SCH ×2 (08:55→20:58)
[2018-04-24] MEDS: BISACODYL (EC) 5 MG TAB PO ONE ×2 (08:55→09:13)
[2018-04-24] MEDS: ARFORMOTEROL TARTRATE 15MCG/2 ML AMP NEB SCH ×2 (08:56→19:38)
[2018-04-24] MEDS: CIPROFLOXACIN 400MG/D5W 200 ML IVPB SCH (08:57)
[2018-04-24 10:42] VITALS: BP 158/83
--- NOTE | 2018-04-24 14:41 | DS ---
Date/Time of Note Date/Time of Note DATE: 04/24/18 TIME: 14:37 Discharge Summary Admission/Discharge Info Admit Date/Time Apr 21, 2018 at 12:47 Discharge Date/Time Patient Condition: Stable Consults Dr Sohail [place] Procedures CT A/P IMPRESSION: 1. Distended gallbladder. No evidence of gallstones. Correlate with clinical symptoms. 2. Small hiatal hernia. No evidence of bowel obstruction. LARGE AMOUNT OF STOOL IS NOTED THROUGHOUT MILDLY DISTENDED LOOPS OF LARGE BOWEL SUGGESTIVE OF SEVERE CONSTIPATION. 3. The appendix is within normal limits. 4. Atherosclerotic disease of the aorta. 5. No evidence of free fluid or free air. No gross focal fluid collections. 6. Multilevel degenerative disease of lumbosacral spine. Chronic compression deformity of the superior endplate of T12. Grade 1 anterolisthesis of L5-S1. Hx of Present Illness 77-year-old female with chronic constipation admitted with abdominal pain Hospital Course Admitted and evaluated for severe constipation and impaction. Seen by GI and general surgery. Underwent multiple treatment therapies for constipation. Presently having bowel activity, stable and fit for discharge. Remains on calcium channel teri, will start beta-teri and and potentially as an outpatient the calcium channel teri can be discontinued as a potential contributing agent. Patient had an incomplete EGD colonoscopy while back. Patient will be asked to follow-up with GI. Due to deconditioning we have recommended sniff. If she refuses then home with home safety. Speech therapy and PT. Speech is noted that patient may continue regular diet but may also change to soft diet if she wishes. Fecal impaction constipation Chronic hypertension Chronic hypothyroidism Chronic depression Chronic depression Chronic Palacios's COPD? T12 partial compression fracture? Failure to thrive deconditioning Home Meds Active Scripts Metronidazole* (Flagyl*) 500 Mg Tablet, 500 MG PO Q8 for 10 Days, #30 TAB Prov:HERNANDEZ MO ARNP 08/23/17 Ciprofloxacin Hcl* (Ciprofloxacin Hcl*) 500 Mg Tablet, 500 MG PO BID for 10 Days, #20 TAB Prov:HERNANDEZ MO ARNP 08/23/17 Acetaminophen (MAPAP) 325 Mg Tablet, 650 MG PO Q6H PRN for PAIN LEVEL 1-3 OR FEVER for 1 Day, #1 TAB otc Prov:RUBA MENJIVAR MD 08/21/17 Reported Medications Omeprazole* (Omeprazole*) 20 Mg Capsule.dr, 1 CAP DAILY 04/21/18 Raloxifene HCl (Raloxifene HCl) 60 Mg Tablet, 1 TAB ORAL DAILY 04/21/18 Linaclotide (LINZESS) 145 Mcg Capsule, 1 CAP ORAL DAILY 04/21/18 Fluticasone Propionate* (Fluticasone Propionate* Nasal) 50 Mcg/[place] - 16 Gm [place].susp, 1 SPRAY NASAL BID, #1 BOTTLE TO EACH NOSTRIL 08/17/17 Levothyroxine Sodium* (Levothyroxine Sodium*) 125 Mcg Tablet, 125 MCG PO BEFORE BREAKFAST, #30 TAB 08/17/17 Amitriptyline Hcl* (Amitriptyline Hcl*) 100 Mg Tablet, 100 MG PO QHS, #30 TAB 08/17/17 Paroxetine Hcl* (Paroxetine*) 20 Mg Tablet, 20 MG PO HS, TAB 08/17/17 Propranolol Hcl* (Propranolol Hcl*) 10 Mg Tablet, 10 MG PO DAILY, TAB 08/17/17 Diazepam* (Diazepam*) 5 Mg Tablet, 5 MG PO TID, TAB 08/17/17 Benazepril Hcl* (Benazepril Hcl*) 40 Mg Tablet, 40 MG PO DAILY, #30 TAB 08/17/17 Polyethylene Glycol* (Miralax*) 17 Gm Powd.pack, 17 GM PO DAILY, #30 PACKET 08/17/17 Meloxicam* (Meloxicam*) 7.5 Mg Tablet, 15 MG PO DAILY, #30 TAB 08/17/17 Diltiazem Hcl* (Diltiazem XT) 180 Mg Capsule.er, 180 MG PO DAILY, #30 CAP 08/17/17 Discontinued Reported Medications Hydrocodone/Acetaminophen ([place] 7.5-325 Tablet) 1 Each Tablet, 1 EACH PO NEEDED, TAB 08/17/17 Discontinued Scripts Omeprazole* (Omeprazole*) 40 Mg Capsule., 40 MG PO DAILY, #30 CAP 3 Refills Prov:HERNANDEZ MO NP 08/23/17 Primary Care Provider Dakota Bautista Time spent on discharge: > 30 minutes Pending Labs Laboratory Tests Test 04/24/18 05:29 White Blood Count 9.7 10^3/ul (4.8-10.8) Red Blood Count 4.03 10^6/ul (4.20-5.40) Hemoglobin 11.9 g/dl (12.0-16.0) Hematocrit 37.6 % (37.0-47.0) Mean Corpuscular Volume 93.3 fl (82.0-101.0) Mean Corpuscular Hemoglobin 29.5 pg (29.0-33.0) Mean Corpuscular Hemoglobin Concent 31.6 g/dl (32.0-37.0) Red Cell Distribution Width 14.5 % (11.5-14.5) Platelet Count 168 10^3/UL (140-415) Mean Platelet Volume 10.4 fl (7.4-10.4) Immature Granulocytes % 0.200 % (0.001-0.429) Neutrophils % 71.4 % (39.0-77.0) Lymphocytes % 13.6 % (15.0-51.0) Monocytes % 12.2 % (0.0-11.0) Eosinophils % 2.3 % (0.0-7.0) Basophils % 0.3 % (0.0-2.0) Nucleated Red Blood Cells % 0.0 /100WBC (0.0-0.0) Immature Granulocytes # 0.020 10^3/ul (0.0-0.031) Neutrophils # 6.9 10^3/ul (1.6-7.5) Lymphocytes # 1.3 10^3/ul (0.8-2.9) Monocytes # 1.2 10^3/ul (0.3-0.9) Eosinophils # 0.2 10^3/ul (0.0-0.5) Basophils # 0.0 10^3/ul (0.0-0.1) Nucleated Red Blood Cells # 0.0 10^3/ul (0.0-0.0) Sodium Level 140 mmol/L (135-144) Potassium Level 4.0 mmol/L (3.5-5.1) Chloride Level 102 mmol/L (97-110) Carbon Dioxide Level 34 mmol/L (21-31) Anion Gap 4 (5-13) Blood Urea Nitrogen 9 mg/dl (7-20) Creatinine 0.46 mg/dl (0.44-1.00) Est Glomerular Filtrat Rate mL/min mL/min (>60) Glucose Level 103 mg/dl (70-220) Calcium Level 7.9 mg/dl (8.4-10.2) Phosphorus Level 1.6 mg/dl (2.5-4.9) Magnesium Level 2.3 mg/dl (1.7-2.5) RUBA MENJIVAR MD Apr 24, 2018 14:41
[2018-04-24 15:00] VITALS: BP 160/85; PULSE 95; RESP 18
[2018-04-24] MEDS ORDERED: ALBUTEROL/IPRATROPIUM (NEB) 3 ML AMP HHN PRN (15:00)
[2018-04-24] MEDS ORDERED: POTASSIUM PHOSPHATE 30 MM in SOD CHLORIDE 0.9% 250 ML IVPB ONE (15:30)
--- NOTE | 2018-04-24 15:55 | PDOCDIS ---
Discharge Instructions CONDITION [id number] Patient Condition: [id number] Stable HOME CARE INSTRUCTIONS: [id number] Diet Instructions: [id number] y Do not Drive FOLLOW UP/APPOINTMENTS Follow-up Plan pcp 1wk; Dr Sauceda 2wks RUBA MENJIVAR MD Apr 24, 2018 15:55
[2018-04-24] MEDS ORDERED: LUBI24CA7 PO (15:57)
[2018-04-24 20:00] VITALS: BP 160/88; PULSE 97; RESP 18
[2018-04-24] MEDS: AMITRIPTYLINE 50 MG TAB PO SCH (20:58)
[2018-04-24] MEDS: PAROXETINE 20 MG TAB PO SCH (20:58)
[2018-04-25 02:00] VITALS: BP 130/58; PULSE 70; RESP 18
[2018-04-25] MEDS ORDERED: ZOLPIDEM 5 MG TAB PO PRN (02:00)
[2018-04-25] MEDS: LACTULOSE 30ML CUP PO SCH ×2 (05:21→13:35)
[2018-04-25] MEDS: LEVOTHYROXINE 125 MCG TAB PO SCH (06:01)
[2018-04-25] MEDS: PANTOPRAZOLE (EC) 40 MG TAB PO SCH (06:01)
[2018-04-25 07:00] VITALS: BP 177/94; PULSE 102; RESP 18
[2018-04-25] MEDS ORDERED: POLYETHYLENE GLYCOL 17 GM PACKET PO SCH (09:00)
[2018-04-25] MEDS ORDERED: ENOXAPARIN 40 MG/0.4 ML SYG SC SCH (09:00)
[2018-04-25] MEDS: FLUTICASONE 0.05% 16 GM NAS SPRAY NASAL SCH (09:27)
[2018-04-25] MEDS: ARFORMOTEROL TARTRATE 15MCG/2 ML AMP NEB SCH (09:27)
[2018-04-25] MEDS: LUBIPROSTONE 24 MCG CAP PO SCH (09:27)
[2018-04-25] MEDS: ALPRAZOLAM 0.25 MG TAB PO SCH (09:28)
[2018-04-25] MEDS: DILTIAZEM (CD) 180 MG CAP PO SCH (09:28)
[2018-04-25] MEDS: ENOXAPARIN 40 MG/0.4 ML SYG SC SCH (09:28)
--- NOTE | 2018-04-25 10:14 | DS ---
Date/Time of Note Date/Time of Note DATE: 04/25/18 TIME: 10:12 Discharge Summary Admission/Discharge Info Admit Date/Time Apr 21, 2018 at 12:47 Discharge Date/Time Patient Condition: Stable Consults Consults Dr Sohail [place] Procedures CT A/P IMPRESSION: 1. Distended gallbladder. No evidence of gallstones. Correlate with clinical symptoms. 2. Small hiatal hernia. No evidence of bowel obstruction. LARGE AMOUNT OF STOOL IS NOTED THROUGHOUT MILDLY DISTENDED LOOPS OF LARGE BOWEL SUGGESTIVE OF SEVERE CONSTIPATION. 3. The appendix is within normal limits. 4. Atherosclerotic disease of the aorta. 5. No evidence of free fluid or free air. No gross focal fluid collections. 6. Multilevel degenerative disease of lumbosacral spine. Chronic compression deformity of the superior endplate of T12. Grade 1 anterolisthesis of L5-S1. Hx of Present Illness 77-year-old female with chronic constipation admitted with abdominal pain Hospital Course Admitted and evaluated for severe constipation and impaction. Seen by GI and general surgery. Underwent multiple treatment therapies for constipation. Presently having bowel activity, stable and fit for discharge. Remains on calcium channel teri, will start beta-teri and and potentially as an outpatient the calcium channel teri can be discontinued as a potential contributing agent. Patient had an incomplete EGD colonoscopy a while back. Patient will be asked to follow-up with GI. Due to deconditioning we have recommended sniff. If she refuses then home with home safety. Speech therapy and PT. Speech is noted that patient may continue regular diet but may also change to soft diet if she wishes. Addendum: Patient was given the option of sniff. She refused. Patient will go home with home safety PT. caregiver or future assisted living placement options to be considered. Son will merchandise pickup/receiving associate the patient. Fecal impaction/constipation Chronic hypertension Chronic hypothyroidism Chronic depression Chronic depression Chronic Palacios's COPD? T12 partial compression fracture? Failure to thrive deconditioning Home Meds Active Scripts Lubiprostone* (Amitiza*) 24 Mcg Capsule, 24 MCG PO BID for 14 Days, #30 CAP Prov:RUBA MENJIVAR MD 04/24/18 Reported Medications Omeprazole* (Omeprazole*) 20 Mg Capsule., 1 CAP DAILY 04/21/18 Raloxifene HCl (Raloxifene HCl) 60 Mg Tablet, 1 TAB ORAL DAILY 04/21/18 Linaclotide (LINZESS) 145 Mcg Capsule, 1 CAP ORAL DAILY 04/21/18 Fluticasone Propionate* (Fluticasone Propionate* Nasal) 50 Mcg/[place] - 16 Gm [place].susp, 1 SPRAY NASAL BID, #1 BOTTLE TO EACH NOSTRIL 08/17/17 Levothyroxine Sodium* (Levothyroxine Sodium*) 125 Mcg Tablet, 125 MCG PO BEFORE BREAKFAST, #30 TAB 08/17/17 Amitriptyline Hcl* (Amitriptyline Hcl*) 100 Mg Tablet, 100 MG PO QHS, #30 TAB 08/17/17 Paroxetine Hcl* (Paroxetine*) 20 Mg Tablet, 20 MG PO HS, TAB 08/17/17 Propranolol Hcl* (Propranolol Hcl*) 10 Mg Tablet, 10 MG PO DAILY, TAB 08/17/17 Benazepril Hcl* (Benazepril Hcl*) 40 Mg Tablet, 40 MG PO DAILY, #30 TAB 08/17/17 Polyethylene Glycol* (Miralax*) 17 Gm Powd.pack, 17 GM PO DAILY, #30 PACKET 08/17/17 Diltiazem Hcl* (Diltiazem XT) 180 Mg Capsule.er, 180 MG PO DAILY, #30 CAP 08/17/17 Discontinued Reported Medications Diazepam* (Diazepam*) 5 Mg Tablet, 5 MG PO TID, TAB 08/17/17 Meloxicam* (Meloxicam*) 7.5 Mg Tablet, 15 MG PO DAILY, #30 TAB 08/17/17 Hydrocodone/Acetaminophen ([place] 7.5-325 Tablet) 1 Each Tablet, 1 EACH PO NEEDED, TAB 08/17/17 Discontinued Scripts Metronidazole* (Flagyl*) 500 Mg Tablet, 500 MG PO Q8 for 10 Days, #30 TAB Prov:HERNANDEZ MO [employer]STUME CUTTER 08/23/17 Ciprofloxacin Hcl* (Ciprofloxacin Hcl*) 500 Mg Tablet, 500 MG PO BID for 10 Days, #20 TAB Prov:HERNANDEZ MO [employer]UME CUTTER 08/23/17 Acetaminophen (MAPAP) 325 Mg Tablet, 650 MG PO Q6H PRN for PAIN LEVEL 1-3 OR FEVER for 1 Day, #1 TAB otc Prov:RUBA MENJIVAR MD 08/21/17 Omeprazole* (Omeprazole*) 40 Mg Capsule.dr, 40 MG PO DAILY, #30 CAP 3 Refills Prov:HERNANDEZ MO [employer]STUME CUTTER 08/23/17 Follow-up Plan pcp 1wk; Dr Sauceda 2wks Primary Care Provider Dakota Bautista Time spent on discharge: < 30 minutes RUBA MENJIVAR MD Apr 25, 2018 10:14
[2018-04-25 14:00] VITALS: BP 160/94; PULSE 110; RESP 18
[2018-04-25 17:00] VITALS: BP 142/98; PULSE 95; RESP 16
[2018-04-25] MEDS ORDERED: ATENOLOL 25 MG TAB PO SCH (18:00)
--- NOTE | 2018-04-28 13:35 | RADRPT ---
Vent Rate: 91 bpm RR Interval: 0 msec [place] Interval: 188 msec QRS Duration: 108 msec QT Interval: 332 msec QTC Interval: 408 msec P-R-T [place]: 54 - 67 - 119 degrees Normal sinus rhythm ST & T wave abnormality, consider inferolateral ischemia Abnormal ECG Electronically Signed By: Iain Arias
== END 2018-04-25 17:13 | disposition home or self-care (01) | DRG 392 ==
LOC: E/R 11:11 → PP2 12:47
PROVIDERS: ADMIT Family Medicine; ATTEND Internal Medicine
DX: K59.00 Constipation, unspecified (principal); E44.0 Moderate protein-calorie malnutrition; Z68.1 Body mass index [BMI] 19.9 or less, adult; E87.5 Hyperkalemia; F41.9 Anxiety disorder, unspecified; M19.90 Unspecified osteoarthritis, unspecified site; I10 Essential (primary) hypertension; M81.0 Age-related osteoporosis without current pathological fracture; D72.829 Elevated white blood cell count, unspecified; I70.90 Unspecified atherosclerosis; D75.89 Other specified diseases of blood and blood-forming organs; E03.9 Hypothyroidism, unspecified; R73.03 Prediabetes; K22.70 Barrett's esophagus without dysplasia; R62.7 Adult failure to thrive
CPT/HCPCS: 36600; 71045; 74019; 74176; 80048; 80053; 81001; 82607; 82746; 82803; 83690; 83735; 83880; 84100; 84443; 84484; 85025; 85610; 85730; 87086; 92610; 93005; 94640; 94664; 96374; 97116; 97161; 97530; A4310; J0744; J1650; J2405; J2765; J7030; J7040; J7050

== ENCOUNTER → 2018-07-13 | Outpatient (CLI) | payer MEDICARE, OTHER ==
[~2018-07-13] MED LIST changes: -ACET325T40 PO; -CIPR500T4 PO; -DIAZ5TAB4 PO; -HYDR-4012 PO; +LINA145C ORAL; +LUBI24CA7 PO; -MELO7.5T38 PO; -METR500T PO; +OMEP20CA16; -OMEP40CA6 PO; +RALO60TA13 ORAL
== END | disposition home or self-care (01) ==
LOC: RAD 14:12
PROVIDERS: ATTEND Internal Medicine
DX: M25.532 Pain in left wrist (principal)

== ENCOUNTER 2018-10-29 10:23 | Inpatient (IN) | payer MEDICARE, OTHER ==
[~2018-10-29] VITALS: Ht 157.5 cm; Wt 45.5 kg
[~2018-10-29 10:23] MED LIST changes: +ACET1TAB40 PO; +BENA20TA4 PO; +BETH10TA16 PO; +DIAZ5TAB4 PO; +DILT120C10 PO; +ENOX40DI2 SC; +FLOV110 INHALATION; +LEVO112T42 PO; +LEVO125T71 PO; +LINA145C PO; -OMEP20CA16; +OMEP20CA17; +OMEP20CA17 PO; +PARO40TA63 PO; +PRED5DRO20 BOTH EYES; +RALO60TA12 PO; +TRIA15CR55 TOP
[2018-10-29] MEDS ORDERED: SOD CHLORIDE 0.9% 500 ML IV STA (10:27)
[2018-10-29] MEDS ORDERED: morphine 4 MG/ML VIAL IV ONE (10:30)
[2018-10-29] MEDS ORDERED: ONDANSETRON 4 MG INJ IV ONE (10:30)
[2018-10-29] MEDS ORDERED: ACETAMINOPHEN 325 MG TAB PO PRN (13:00)
[2018-10-29] MEDS ORDERED: ONDANSETRON 4 MG INJ IV PRN (13:00)
[2018-10-29] MEDS ORDERED: morphine 2 MG INJ IV STA (13:44)
[2018-10-29 14:20] VITALS: BP 129/82; PULSE 107; RESP 12; Ht 157.5 cm; Wt 45.5 kg
[2018-10-29 18:42] VITALS: BP 120/72; PULSE 102; RESP 17
[2018-10-29] MEDS ORDERED: POTASSIUM CHLORIDE 20 MEQ POWDER FOR ORAL SOLN PO ONE (20:00)
[2018-10-29 22:44] VITALS: BP 138/63; PULSE 101
[2018-10-29] MEDS: AMITRIPTYLINE 50 MG TAB PO SCH (22:46)
[2018-10-29] MEDS: DILTIAZEM (SR) 60 MG CAP PO SCH (22:46)
[2018-10-29] MEDS: PROPRANOLOL 10 MG TAB PO SCH (22:47)
[2018-10-29] MEDS: BENAZEPRIL 20 MG TAB PO SCH (22:47)
[2018-10-29] MEDS: DOCUSATE SODIUM 100 MG CAP PO SCH (22:58)
[2018-10-29] MEDS: morphine 2 MG INJ IV PRN (22:59)
[2018-10-30] VITALS (9 sets, daily range): BP systolic 106–137; BP diastolic 56–71; PULSE 82–103; RESP 18
[2018-10-30] MEDS ORDERED: LEVOTHYROXINE 125 MCG TAB PO SCH (07:00)
[2018-10-30] MEDS: MOMETASONE 0.24 GM INHALER INH SCH (09:25)
[2018-10-30] MEDS: PAROXETINE 20 MG TAB PO SCH (09:26)
[2018-10-30] MEDS: PANTOPRAZOLE (EC) 40 MG TAB PO SCH (09:26)
[2018-10-30] MEDS: RALOXIFENE 60 MG TAB PO SCH (09:26)
[2018-10-30] MEDS: DOCUSATE SODIUM 100 MG CAP PO SCH (09:26)
[2018-10-30] MEDS: PROPRANOLOL 10 MG TAB PO SCH ×2 (09:27→21:24)
[2018-10-30] MEDS: DILTIAZEM (SR) 60 MG CAP PO SCH ×2 (09:28→21:25)
[2018-10-30] MEDS: BENAZEPRIL 20 MG TAB PO SCH ×2 (09:28→21:25)
[2018-10-30] MEDS ORDERED: CEFTRIAXONE 1 GM/50 ML (PMX) 50 ML IVPB ONE (12:00)
[2018-10-30] MEDS: morphine 2 MG INJ IV PRN ×2 (13:34→23:47)
[2018-10-30] MEDS: AMITRIPTYLINE 50 MG TAB PO SCH (21:24)
[2018-10-31 01:26] VITALS: BP 115/52; PULSE 83; RESP 18
[2018-10-31] MEDS: LEVOTHYROXINE 112 MCG TAB PO SCH (03:14)
[2018-10-31 07:11] VITALS: BP 118/58; PULSE 81; RESP 17
[2018-10-31] MEDS: BENAZEPRIL 20 MG TAB PO SCH ×2 (08:13→20:46)
[2018-10-31] MEDS: PROPRANOLOL 10 MG TAB PO SCH ×2 (08:13→20:47)
[2018-10-31] MEDS: PANTOPRAZOLE (EC) 40 MG TAB PO SCH (08:14)
[2018-10-31] MEDS: DOCUSATE SODIUM 100 MG CAP PO SCH (08:14)
[2018-10-31] MEDS: MOMETASONE 0.24 GM INHALER INH SCH (08:14)
[2018-10-31] MEDS: RALOXIFENE 60 MG TAB PO SCH (08:14)
[2018-10-31] MEDS: PAROXETINE 20 MG TAB PO SCH (08:14)
[2018-10-31] MEDS: DILTIAZEM (SR) 60 MG CAP PO SCH ×2 (08:14→20:47)
[2018-10-31 13:25] VITALS: BP 119/63; PULSE 73; RESP 18
[2018-10-31 17:48] VITALS: BP 121/70; PULSE 80; RESP 18
[2018-10-31] MEDS: HYDROCODONE/APAP (10/325) TAB PO PRN (18:44)
[2018-10-31 19:19] VITALS: BP 116/58; PULSE 87; RESP 17
[2018-10-31] MEDS ORDERED: morphine 2 MG INJ IV PRN ×3 (19:30→21:30)
[2018-10-31] MEDS: AMITRIPTYLINE 50 MG TAB PO SCH (20:46)
[2018-10-31] MEDS: ENOXAPARIN 40 MG/0.4 ML SYG SC SCH (20:49)
[2018-10-31] MEDS: LORAZEPAM 0.5 MG TAB PO PRN (23:26)
[2018-11-01 02:00] VITALS: BP 132/64; PULSE 80
[2018-11-01] MEDS: LEVOTHYROXINE 112 MCG TAB PO SCH (05:10)
[2018-11-01 07:23] VITALS: BP 118/77; PULSE 85; RESP 18
[2018-11-01] MEDS: PROPRANOLOL 10 MG TAB PO SCH ×2 (08:35→20:51)
[2018-11-01] MEDS: DILTIAZEM (SR) 60 MG CAP PO SCH ×2 (08:35→20:50)
[2018-11-01] MEDS: RALOXIFENE 60 MG TAB PO SCH (08:35)
[2018-11-01] MEDS: PANTOPRAZOLE (EC) 40 MG TAB PO SCH (08:35)
[2018-11-01] MEDS: PAROXETINE 20 MG TAB PO SCH (08:35)
[2018-11-01] MEDS: DOCUSATE SODIUM 100 MG CAP PO SCH (08:35)
[2018-11-01] MEDS: HYDROCODONE/APAP (10/325) TAB PO PRN (08:36)
[2018-11-01] MEDS: MOMETASONE 0.24 GM INHALER INH SCH (08:36)
[2018-11-01] MEDS: BENAZEPRIL 20 MG TAB PO SCH ×2 (08:36→20:50)
[2018-11-01] MEDS: ENOXAPARIN 40 MG/0.4 ML SYG SC SCH (08:37)
[2018-11-01] MEDS: LORAZEPAM 0.5 MG TAB PO PRN (12:54)
[2018-11-01 16:00] VITALS: BP 136/85; PULSE 85; RESP 16
[2018-11-01 20:19] VITALS: BP 139/83; PULSE 95; RESP 20
[2018-11-01] MEDS: AMITRIPTYLINE 50 MG TAB PO SCH (20:50)
[2018-11-01] MEDS: DEXTROSE 5%-0.45% NACL 1,000 ML IV SCH (20:52)
[2018-11-01] MEDS ORDERED: LORAZEPAM 0.5 MG TAB PO PRN (21:30)
[2018-11-02 02:06] VITALS: BP 126/71; PULSE 75; RESP 16
[2018-11-02] MEDS: LEVOTHYROXINE 112 MCG TAB PO SCH (06:00)
[2018-11-02 07:36] VITALS: BP 138/72; PULSE 70; RESP 16
[2018-11-02] MEDS: MOMETASONE 0.24 GM INHALER INH SCH (09:57)
[2018-11-02] MEDS: DILTIAZEM (SR) 60 MG CAP PO SCH ×2 (09:58→21:00)
[2018-11-02] MEDS: RALOXIFENE 60 MG TAB PO SCH (09:58)
[2018-11-02] MEDS: PANTOPRAZOLE (EC) 40 MG TAB PO SCH (09:59)
[2018-11-02] MEDS: PROPRANOLOL 10 MG TAB PO SCH ×2 (09:59→21:00)
[2018-11-02] MEDS: BENAZEPRIL 20 MG TAB PO SCH ×2 (09:59→21:00)
[2018-11-02] MEDS: PAROXETINE 20 MG TAB PO SCH (09:59)
[2018-11-02] MEDS: DOCUSATE SODIUM 100 MG CAP PO SCH (09:59)
[2018-11-02] MEDS: HYDROCODONE/APAP (10/325) TAB PO PRN (10:03)
[2018-11-02] MEDS: DEXTROSE 5%-0.45% NACL 1,000 ML IV SCH ×2 (11:35→21:00)
[2018-11-02 14:09] VITALS: BP 107/66; PULSE 70; RESP 16
[2018-11-02] MEDS ORDERED: GLYCOPYRROLATE 0.4 MG INJ ONE (18:52)
[2018-11-02] MEDS ORDERED: FENTAnyl 50 MCG/ML VIAL ONE (18:52)
[2018-11-02] MEDS ORDERED: DEXAMETHASONE 4 MG/ML 5 ML INJ ONE (18:52)
[2018-11-02] MEDS ORDERED: CEFAZOLIN 1 GM INJ ONE (18:52)
[2018-11-02] MEDS ORDERED: ROCURONIUM 50 MG INJ ONE (18:52)
[2018-11-02] MEDS ORDERED: ONDANSETRON 4 MG INJ ONE (18:52)
[2018-11-02] MEDS ORDERED: MIDAZOLAM 1 MG/ML 2 ML INJ ONE (18:52)
[2018-11-02] MEDS ORDERED: PROPOFOL 20 ML ONE (18:52)
[2018-11-02] MEDS ORDERED: NEOSTIGMINE 3 MG/3 ML SYRINGE ONE (18:52)
[2018-11-02] MEDS ORDERED: POLYMYXIN/BACITRACIN 1L IRRIG ONE (20:11)
[2018-11-02] MEDS ORDERED: MEPERIDINE 25 MG INJ IV PRN (20:30)
[2018-11-02] MEDS ORDERED: ALBUTEROL 0.083% (NEB) 2.5 MG/3 ML AMP HHN PRN (20:30)
[2018-11-02] MEDS ORDERED: MIDAZOLAM 1 MG/ML 2 ML INJ IV PRN (20:30)
[2018-11-02] MEDS ORDERED: TRIMETHOBENZAMIDE 100 MG/ML VIAL IM PRN (20:30)
[2018-11-02] MEDS ORDERED: EPHEDrine 25 MG/5 ML SYG IV PRN (20:30)
[2018-11-02] MEDS ORDERED: LABETALOL HCL 20MG INJ IV PRN (20:30)
[2018-11-02] MEDS ORDERED: HYDROmorphONE 1 MG/5 ML IV SYRINGE IV PRN ×3 (20:30)
[2018-11-02] MEDS ORDERED: FENTAnyl 50 MCG/ML VIAL IV PRN ×3 (20:30)
[2018-11-02] MEDS ORDERED: ONDANSETRON 4 MG INJ IV PRN (20:30)
[2018-11-02] MEDS ORDERED: IPRATROPIUM (NEB) 0.5 MG/2.5 ML AMP HHN PRN (20:30)
[2018-11-02] MEDS ORDERED: OXYCODONE/ACETAMINOPHEN (5/325) TAB PO PRN ×2 (20:30)
[2018-11-02] MEDS ORDERED: hydrALAzine 20 MG INJ IV PRN (20:30)
[2018-11-02] MEDS ORDERED: DIPHENHYDRAMINE 50 MG INJ IV PRN (20:30)
[2018-11-02] MEDS ORDERED: VANCOMYCIN 1 GM (PMX) 250 ML ONE (20:46)
[2018-11-02] MEDS: TRANEXAMIC ACID 1GM/100ML(PMX) 0 ML ONE ×2 (20:55→21:25)
[2018-11-02] MEDS: AMITRIPTYLINE 50 MG TAB PO SCH (21:00)
[2018-11-02] MEDS ORDERED: VANCOMYCIN 1 GM (PMX) 250 ML IVPB ONE (21:00)
[2018-11-02] MEDS ORDERED: morphine SULFATE/PF (10 MG/10 ML) INJ ONE (21:25)
[2018-11-03] VITALS (26 sets, daily range): BP systolic 71–160; BP diastolic 49–98; PULSE 75–106; RESP 13–28
[2018-11-03] MEDS ORDERED: SUGAMMADEX SODIUM 200 MG/2 ML VIAL IV ONE (00:18)
[2018-11-03] MEDS ORDERED: LACTATED RINGER'S 1,000 ML IV SCH (00:44)
[2018-11-03] MEDS ORDERED: HYDROmorphONE 0.5 MG/0.5 ML SYG ONE (00:47)
[2018-11-03] MEDS ORDERED: NA PHOSPHATE/BIPHOS 133 ML ENEMA PR PRN (01:00)
[2018-11-03] MEDS ORDERED: TRIMETHOBENZAMIDE 100 MG/ML VIAL IM PRN (01:00)
[2018-11-03] MEDS ORDERED: DIPHENHYDRAMINE 50 MG INJ IV PRN ×2 (01:00)
[2018-11-03] MEDS ORDERED: IPRATROPIUM (NEB) 0.5 MG/2.5 ML AMP HHN PRN (01:00)
[2018-11-03] MEDS ORDERED: LABETALOL HCL 20MG INJ IV PRN (01:00)
[2018-11-03] MEDS ORDERED: DOCUSATE SODIUM 100 MG CAP PO ONE (01:00)
[2018-11-03] MEDS ORDERED: oxyCODONE 5 MG TAB PO PRN ×2 (01:00)
[2018-11-03] MEDS ORDERED: ALBUTEROL 0.083% (NEB) 2.5 MG/3 ML AMP HHN PRN (01:00)
[2018-11-03] MEDS ORDERED: hydrALAzine 20 MG INJ IV PRN (01:00)
[2018-11-03] MEDS ORDERED: MIDAZOLAM 1 MG/ML 2 ML INJ IV PRN (01:00)
[2018-11-03] MEDS ORDERED: MAGNESIUM HYDROXIDE 30ML CUP PO PRN (01:00)
[2018-11-03] MEDS ORDERED: HYDROmorphONE 0.5 MG/0.5 ML SYG IV PRN ×2 (01:00)
[2018-11-03] MEDS ORDERED: NALOXONE (0.4 MG/ML) INJ IV PRN (01:00)
[2018-11-03] MEDS ORDERED: ONDANSETRON 4 MG INJ IV PRN (01:00)
[2018-11-03] MEDS ORDERED: NACL 0.9% 3 ML SYG IV SCH (01:00)
[2018-11-03] MEDS ORDERED: EPHEDrine 25 MG/5 ML SYG IV PRN (01:00)
[2018-11-03] MEDS ORDERED: MEPERIDINE 25 MG INJ IV PRN (01:00)
[2018-11-03] MEDS ORDERED: BISACODYL 10 MG SUPP PR PRN (01:00)
[2018-11-03] MEDS ORDERED: FENTAnyl 50 MCG/ML VIAL IV PRN ×2 (01:00)
[2018-11-03] MEDS ORDERED: HYDROmorphONE 1 MG/ML SYG IV PRN (01:00)
[2018-11-03] MEDS: CLINDAMYCIN 900 MG (PMX) 50 ML IVPB SCH ×3 (02:10→17:31)
[2018-11-03] MEDS: ACETAMINOPHEN 500 MG TAB PO SCH ×3 (06:08→21:15)
[2018-11-03] MEDS ORDERED: DILTIAZEM 120 MG PO SCH (09:00)
[2018-11-03] MEDS ORDERED: LORAZEPAM 1 MG TAB ONE (09:49)
[2018-11-03] MEDS: LEVOTHYROXINE 112 MCG TAB PO SCH (10:05)
[2018-11-03] MEDS: MOMETASONE 0.24 GM INHALER INH SCH (10:05)
[2018-11-03] MEDS: PAROXETINE 20 MG TAB PO SCH (10:05)
[2018-11-03] MEDS: PROPRANOLOL 10 MG TAB PO SCH ×2 (10:05→21:16)
[2018-11-03] MEDS: PANTOPRAZOLE (EC) 40 MG TAB PO SCH (10:06)
[2018-11-03] MEDS: BENAZEPRIL 20 MG TAB PO SCH ×2 (10:06→21:15)
[2018-11-03] MEDS: RALOXIFENE 60 MG TAB PO SCH (10:06)
[2018-11-03] MEDS: DOCUSATE SODIUM 100 MG CAP PO SCH (10:08)
[2018-11-03] MEDS: ENOXAPARIN 40 MG/0.4 ML SYG SC SCH (10:26)
[2018-11-03] MEDS ORDERED: LORAZEPAM 1 MG TAB PO PRN (10:30)
[2018-11-03] MEDS: DILTIAZEM (CD) 120 MG CAP PO SCH ×2 (10:43→21:16)
[2018-11-03] MEDS ORDERED: VANCOMYCIN 1 GM (PMX) 250 ML IVPB SCH (18:00)
[2018-11-03] MEDS: AMITRIPTYLINE 50 MG TAB PO SCH (21:15)
[2018-11-04] MEDS ORDERED: ONDANSETRON 4 MG INJ IV PRN (01:00)
[2018-11-04 02:05] VITALS: BP 125/71; PULSE 71; RESP 18
[2018-11-04] MEDS ORDERED: PANTOPRAZOLE (EC) 40 MG TAB PO SCH (06:00)
[2018-11-04] MEDS: ACETAMINOPHEN 500 MG TAB PO SCH ×3 (06:03→21:27)
[2018-11-04] MEDS: LEVOTHYROXINE 112 MCG TAB PO SCH (06:03)
[2018-11-04 08:53] VITALS: BP 143/73; PULSE 71; RESP 18
[2018-11-04] MEDS: DOCUSATE SODIUM 100 MG CAP PO SCH ×3 (09:00→20:27)
[2018-11-04] MEDS: DILTIAZEM (CD) 120 MG CAP PO SCH ×2 (09:19→20:28)
[2018-11-04] MEDS: PROPRANOLOL 10 MG TAB PO SCH ×2 (09:19→20:29)
[2018-11-04] MEDS: PAROXETINE 20 MG TAB PO SCH (09:19)
[2018-11-04] MEDS: PANTOPRAZOLE (EC) 40 MG TAB PO SCH (09:20)
[2018-11-04] MEDS: BENAZEPRIL 20 MG TAB PO SCH ×2 (09:20→20:29)
[2018-11-04] MEDS: RALOXIFENE 60 MG TAB PO SCH (09:20)
[2018-11-04] MEDS: ENOXAPARIN 40 MG/0.4 ML SYG SC SCH (09:25)
[2018-11-04] MEDS: MOMETASONE 0.24 GM INHALER INH SCH (15:21)
[2018-11-04 20:24] VITALS: BP 138/86; PULSE 79; RESP 18
[2018-11-04] MEDS: AMITRIPTYLINE 50 MG TAB PO SCH (20:29)
[2018-11-05 02:02] VITALS: BP 155/82; PULSE 78; RESP 18
[2018-11-05] MEDS: ACETAMINOPHEN 500 MG TAB PO SCH ×3 (05:01→21:31)
[2018-11-05] MEDS: LEVOTHYROXINE 112 MCG TAB PO SCH (05:01)
[2018-11-05 07:14] VITALS: BP 135/90; PULSE 88; RESP 18
[2018-11-05] MEDS: PAROXETINE 20 MG TAB PO SCH (08:53)
[2018-11-05] MEDS: BENAZEPRIL 20 MG TAB PO SCH ×2 (08:53→21:33)
[2018-11-05] MEDS: PANTOPRAZOLE (EC) 40 MG TAB PO SCH (08:53)
[2018-11-05] MEDS: RALOXIFENE 60 MG TAB PO SCH (08:53)
[2018-11-05] MEDS: DILTIAZEM (CD) 120 MG CAP PO SCH ×2 (08:54→21:33)
[2018-11-05] MEDS: PROPRANOLOL 10 MG TAB PO SCH ×2 (08:54→21:33)
[2018-11-05] MEDS: ENOXAPARIN 40 MG/0.4 ML SYG SC SCH (08:56)
[2018-11-05] MEDS: MOMETASONE 0.24 GM INHALER INH SCH (08:57)
[2018-11-05] MEDS: DOCUSATE SODIUM 100 MG CAP PO SCH ×3 (09:00→21:32)
[2018-11-05] MEDS: KETOROLAC 15 MG INJ IV PRN (12:21)
[2018-11-05] MEDS: SENNA/DOCUSATE NA (8.6MG/50MG) TAB PO PRN (13:10)
[2018-11-05 14:20] VITALS: BP 129/87; PULSE 82; RESP 18
[2018-11-05] MEDS: POLYETHYLENE GLYCOL 17 GM PACKET PO PRN (17:55)
[2018-11-05 19:55] VITALS: BP 128/71; PULSE 81; RESP 18
[2018-11-05] MEDS ORDERED: POTASSIUM CHLORIDE (SR) 10 MEQ TAB PO ONE (21:00)
[2018-11-05] MEDS: AMITRIPTYLINE 50 MG TAB PO SCH (21:32)
[2018-11-05] MEDS ORDERED: MAGNESIUM SULFATE 3 GM in DEXTROSE 5% 100 ML IVPB ONE (22:00)
[2018-11-06 01:25] VITALS: BP 151/74; PULSE 69; RESP 18
[2018-11-06] MEDS ORDERED: DIAZEPAM 5 MG TAB PO ONE (02:00)
[2018-11-06] MEDS: LEVOTHYROXINE 112 MCG TAB PO SCH (05:21)
[2018-11-06] MEDS: ACETAMINOPHEN 500 MG TAB PO SCH ×3 (05:21→22:05)
[2018-11-06] MEDS: KETOROLAC 15 MG INJ IV PRN (05:23)
[2018-11-06 08:10] VITALS: BP 157/75; PULSE 77; RESP 18
[2018-11-06] MEDS: DOCUSATE SODIUM 100 MG CAP PO SCH ×3 (09:00→22:03)
[2018-11-06] MEDS: MOMETASONE 0.24 GM INHALER INH SCH (09:26)
[2018-11-06] MEDS: PAROXETINE 20 MG TAB PO SCH (09:27)
[2018-11-06] MEDS: PROPRANOLOL 10 MG TAB PO SCH ×2 (09:27→22:04)
[2018-11-06] MEDS: BENAZEPRIL 20 MG TAB PO SCH ×2 (09:28→22:05)
[2018-11-06] MEDS: RALOXIFENE 60 MG TAB PO SCH (09:28)
[2018-11-06] MEDS: DILTIAZEM (CD) 120 MG CAP PO SCH ×2 (09:28→22:05)
[2018-11-06] MEDS: PANTOPRAZOLE (EC) 40 MG TAB PO SCH (09:28)
[2018-11-06] MEDS: ENOXAPARIN 40 MG/0.4 ML SYG SC SCH (09:29)
[2018-11-06 15:15] VITALS: BP 138/79; PULSE 75; RESP 18
[2018-11-06] MEDS: POLYETHYLENE GLYCOL 17 GM PACKET PO PRN (18:39)
[2018-11-06 20:25] VITALS: BP 135/80; PULSE 75; RESP 18
[2018-11-06] MEDS: AMITRIPTYLINE 50 MG TAB PO SCH (22:02)
[2018-11-07 02:56] VITALS: BP 117/74; PULSE 85; RESP 18
[2018-11-07] MEDS: KETOROLAC 15 MG INJ IV PRN (04:35)
[2018-11-07] MEDS: DIAZEPAM 5 MG TAB PO PRN ×2 (04:35→18:28)
[2018-11-07] MEDS: LEVOTHYROXINE 112 MCG TAB PO SCH (05:51)
[2018-11-07] MEDS: ACETAMINOPHEN 500 MG TAB PO SCH ×3 (05:52→21:18)
[2018-11-07 08:23] VITALS: BP 134/71; PULSE 77; RESP 18
[2018-11-07] MEDS: MOMETASONE 0.24 GM INHALER INH SCH (09:20)
[2018-11-07] MEDS: PANTOPRAZOLE (EC) 40 MG TAB PO SCH (09:20)
[2018-11-07] MEDS: DOCUSATE SODIUM 100 MG CAP PO SCH (09:20)
[2018-11-07] MEDS: PAROXETINE 20 MG TAB PO SCH (09:20)
[2018-11-07] MEDS: BENAZEPRIL 20 MG TAB PO SCH ×2 (09:20→21:19)
[2018-11-07] MEDS: DILTIAZEM (CD) 120 MG CAP PO SCH ×2 (09:21→21:19)
[2018-11-07] MEDS: RALOXIFENE 60 MG TAB PO SCH (09:21)
[2018-11-07] MEDS: PROPRANOLOL 10 MG TAB PO SCH ×2 (09:21→21:19)
[2018-11-07] MEDS: ENOXAPARIN 40 MG/0.4 ML SYG SC SCH (09:22)
[2018-11-07 15:03] VITALS: BP 139/79; PULSE 84; RESP 18
[2018-11-07 21:00] VITALS: BP 165/92; PULSE 91; RESP 18
[2018-11-07] MEDS: BETHANECHOL 10 MG TAB PO SCH (21:19)
[2018-11-08 01:44] VITALS: BP 125/68; PULSE 80; RESP 18
[2018-11-08] MEDS: LEVOTHYROXINE 112 MCG TAB PO SCH (05:02)
[2018-11-08] MEDS: ACETAMINOPHEN 500 MG TAB PO SCH ×3 (05:02→22:00)
[2018-11-08 07:57] VITALS: BP 157/76; PULSE 85; RESP 18
[2018-11-08] MEDS: BETHANECHOL 10 MG TAB PO SCH ×3 (09:45→20:31)
[2018-11-08] MEDS: PANTOPRAZOLE (EC) 40 MG TAB PO SCH (09:45)
[2018-11-08] MEDS: PAROXETINE 20 MG TAB PO SCH (09:46)
[2018-11-08] MEDS: PROPRANOLOL 10 MG TAB PO SCH ×2 (09:47→20:31)
[2018-11-08] MEDS: DILTIAZEM (CD) 120 MG CAP PO SCH ×2 (09:47→20:31)
[2018-11-08] MEDS: RALOXIFENE 60 MG TAB PO SCH (09:47)
[2018-11-08] MEDS: BENAZEPRIL 20 MG TAB PO SCH ×2 (09:48→20:30)
[2018-11-08] MEDS: DOCUSATE SODIUM 100 MG CAP PO SCH (09:48)
[2018-11-08] MEDS: MOMETASONE 0.24 GM INHALER INH SCH (09:48)
[2018-11-08] MEDS: ENOXAPARIN 40 MG/0.4 ML SYG SC SCH (09:50)
[2018-11-08] MEDS: POLYETHYLENE GLYCOL 17 GM PACKET PO PRN (10:43)
[2018-11-08] MEDS: SENNA/DOCUSATE NA (8.6MG/50MG) TAB PO PRN (12:47)
[2018-11-08 15:08] VITALS: BP 155/80; PULSE 89; RESP 20
[2018-11-08] MEDS ORDERED: DIAZEPAM 5 MG TAB PO PRN (16:00)
[2018-11-08] MEDS ORDERED: PAROXETINE 20 MG TAB PO SCH (16:00)
[2018-11-08 20:29] VITALS: BP 158/75; PULSE 88; RESP 20
[2018-11-08] MEDS: DIAZEPAM 5 MG TAB PO PRN (20:31)
[2018-11-09] MEDS: ACETAMINOPHEN 500 MG TAB PO SCH ×5 (00:39→21:39)
[2018-11-09 02:20] VITALS: BP 132/79; PULSE 93; RESP 18
[2018-11-09] MEDS: LEVOTHYROXINE 112 MCG TAB PO SCH (04:15)
[2018-11-09 08:02] VITALS: BP 156/83; PULSE 93; RESP 18
[2018-11-09] MEDS: DOCUSATE SODIUM 100 MG CAP PO SCH (09:25)
[2018-11-09] MEDS: PAROXETINE 20 MG TAB PO SCH (09:25)
[2018-11-09] MEDS: BETHANECHOL 10 MG TAB PO SCH ×3 (09:25→21:34)
[2018-11-09] MEDS: PANTOPRAZOLE (EC) 40 MG TAB PO SCH (09:25)
[2018-11-09] MEDS: BENAZEPRIL 20 MG TAB PO SCH ×2 (09:26→21:34)
[2018-11-09] MEDS: PROPRANOLOL 10 MG TAB PO SCH ×2 (09:27→21:34)
[2018-11-09] MEDS: DILTIAZEM (CD) 120 MG CAP PO SCH ×2 (09:28→21:34)
[2018-11-09] MEDS: RALOXIFENE 60 MG TAB PO SCH (09:28)
[2018-11-09] MEDS: MOMETASONE 0.24 GM INHALER INH SCH (09:28)
[2018-11-09] MEDS: POLYETHYLENE GLYCOL 17 GM PACKET PO PRN (09:28)
[2018-11-09] MEDS: ENOXAPARIN 40 MG/0.4 ML SYG SC SCH (09:30)
[2018-11-09] MEDS: DIAZEPAM 5 MG TAB PO PRN ×2 (12:01→21:40)
[2018-11-09 13:05] VITALS: BP 157/86; PULSE 88; RESP 18
[2018-11-09 19:57] VITALS: BP 142/89; PULSE 99; RESP 18
[2018-11-10 02:10] VITALS: BP 129/73; PULSE 86; RESP 18
[2018-11-10] MEDS: LEVOTHYROXINE 112 MCG TAB PO SCH (06:36)
[2018-11-10] MEDS: ACETAMINOPHEN 500 MG TAB PO SCH ×2 (06:37→14:34)
[2018-11-10 07:56] VITALS: BP 143/81; PULSE 82; RESP 18
[2018-11-10] MEDS: MOMETASONE 0.24 GM INHALER INH SCH (08:42)
[2018-11-10] MEDS: PROPRANOLOL 10 MG TAB PO SCH (08:43)
[2018-11-10] MEDS: PAROXETINE 20 MG TAB PO SCH (08:43)
[2018-11-10] MEDS: DILTIAZEM (CD) 120 MG CAP PO SCH (08:44)
[2018-11-10] MEDS: BETHANECHOL 10 MG TAB PO SCH ×2 (08:44→14:34)
[2018-11-10] MEDS: RALOXIFENE 60 MG TAB PO SCH (08:44)
[2018-11-10] MEDS: DOCUSATE SODIUM 100 MG CAP PO SCH (08:44)
[2018-11-10] MEDS: PANTOPRAZOLE (EC) 40 MG TAB PO SCH (08:44)
[2018-11-10] MEDS: BENAZEPRIL 20 MG TAB PO SCH (08:45)
[2018-11-10] MEDS: ENOXAPARIN 40 MG/0.4 ML SYG SC SCH (08:48)
[2018-11-10 13:48] VITALS: BP 133/79; PULSE 84; RESP 18
[2018-11-10 14:00] VITALS: BP 128/79; PULSE 89; RESP 18
[2018-11-10] MEDS: DIAZEPAM 5 MG TAB PO PRN (18:18)
== END 2018-11-10 18:30 | disposition home health service (06) | DRG 470 ==
LOC: E/R 10:23 → MS1 12:45 → ICU 11-03 00:36 → MS1 11-03 15:06 → MS3 11-08 21:38 → MS1 11-08 21:58 → MS3 11-09 12:48
PROVIDERS: ADMIT Internal Medicine; ATTEND Internal Medicine
PROC: 0SRS039 Replacement of Left Hip Joint, Femoral Surface with Ceramic Synthetic Substitute, Cemented, Open Approach (ICD-10-PCS; principal; 2018-11-03)
DX: S72.012A Unspecified intracapsular fracture of left femur, initial encounter for closed fracture (principal); E87.1 Hypo-osmolality and hyponatremia; J44.9 Chronic obstructive pulmonary disease, unspecified; E83.42 Hypomagnesemia; I73.00 Raynaud's syndrome without gangrene; F32.9 Major depressive disorder, single episode, unspecified; E87.6 Hypokalemia; D72.829 Elevated white blood cell count, unspecified; K21.9 Gastro-esophageal reflux disease without esophagitis; M19.90 Unspecified osteoarthritis, unspecified site; E03.9 Hypothyroidism, unspecified; R33.9 Retention of urine, unspecified; I10 Essential (primary) hypertension; F41.9 Anxiety disorder, unspecified; K52.9 Noninfective gastroenteritis and colitis, unspecified; K59.00 Constipation, unspecified
CPT/HCPCS: 36415; 70450; 71045; 72170; 73500; 73510; 74018; 80048; 80053; 80061; 80307; 81001; 81003; 83735; 84436; 84443; 84484; 85025; 85610; 85730; 86850; 86900; 86901; 86920; 87081; 87086; 88305; 88311; 93005; 93306; 96374; 96375; 97110; 97116; 97162; 97167; 97530; 97535; A4310; C1713; C1776; J0171; J0690; J0696; J0735; J1100; J1170; J1200; J1650; J1885; J2250; J2270; J2274; J2405; J2710; J2795; J3010; J3370; J3475; J7040; J7042; J7120